=== PATIENT | female | born 1980 | race Caucasian/White ===

== ENCOUNTER 2016-12-12 07:17 | Day surgery (SDC) | payer OTHER ==
[2016-12-11 11:37] VITALS: BMI 26.8
[2016-12-12] VITALS (8 sets, daily range): BP systolic 97–128; BP diastolic 61–77; PULSE 50–61; RESP 12–21; Ht 161.3 cm; Wt 71.0 kg
[~2016-12-12] VITALS: Ht 161.3 cm; Wt 71.0 kg
[2016-12-12 08:22] LABS: ADD SCAN DIFF NO
[2016-12-12] MEDS ORDERED: CIPROFLOXACIN 400 MG in D5W 200 ML IVPB SCH (08:30)
[2016-12-12 08:35] LABS: BASOPHIL # 0.1 10^3/ul (0.0-0.1); BASOPHILS % 0.7 % (0.0-2.0); EOSINOPHILS # 0.3 10^3/ul (0.0-0.5); EOSINOPHILS % 3.6 % (0.0-7.0); HEMATOCRIT 38.9 % (37.0-47.0); HEMOGLOBIN 13.2 g/dl (12.0-16.0); LYMPHOCYTES # 3.1 10^3/ul (0.8-2.9); LYMPHOCYTES % 41.5 % (15.0-51.0); MEAN CORPUSCULAR HEMOGLOBIN 29.5 pg (29.0-33.0); MEAN CORPUSCULAR HGB CONC 33.9 g/dl (32.0-37.0); MEAN CORPUSCULAR VOLUME 86.8 fl (82.0-101.0); MEAN PLATELET VOLUME 10.4 fl (7.4-10.4); MONOCYTE # 0.5 10^3/ul (0.3-0.9); MONOCYTES % 6.7 % (0.0-11.0); NEUTROPHIL # 3.5 10^3/ul (1.6-7.5); NEUTROPHILS % 47.4 % (39.0-77.0); PLATELET COUNT 202 10^3/UL (140-415); RED BLOOD COUNT 4.48 10^6/ul (4.20-5.40); RED CELL DISTRIBUTION WIDTH 12.1 % (11.5-14.5); WHITE BLOOD COUNT 7.5 10^3/ul (4.8-10.8)
[2016-12-12 08:40] LABS: INR 0.89; PT RATIO 0.9
[2016-12-12 08:41] LABS: PARTIAL THROMBOPLASTIN TIME 26.7 Sec (25.0-35.0)
[2016-12-12 08:44] LABS: ALBUMIN 4.3 g/dl (3.3-4.9); ALBUMIN/GLOBULIN RATIO 1.26; BILIRUBIN,INDIRECT 0.5 mg/dl (0-1.1); BILIRUBIN,TOTAL 0.5 mg/dl (0.2-1.3); TOTAL PROTEIN 7.7 g/dl (6.1-8.1)
[2016-12-12 08:48] LABS: CALCIUM 9.4 mg/dl (8.4-10.2); CREATININE 0.77 mg/dl (0.44-1.00); POTASSIUM 3.7 mmol/L (3.5-5.1)
[2016-12-12] MEDS ORDERED: GLYCOPYRROLATE 0.4 MG INJ ONE (08:55)
[2016-12-12] MEDS ORDERED: LIDOCAINE 2% (SDV) 5 ML INJ ONE (08:55)
[2016-12-12] MEDS ORDERED: SUCCINYLCHOLINE CHLORIDE 100 MG/5 ML SYG IV ONE (08:55)
[2016-12-12] MEDS ORDERED: ROCURONIUM 50 MG INJ ONE (08:55)
[2016-12-12] MEDS ORDERED: NEOSTIGMINE 3 MG/3 ML SYRINGE ONE (08:55)
[2016-12-12] MEDS ORDERED: PROPOFOL 20 ML ONE (08:55)
[2016-12-12] MEDS ORDERED: MEPERIDINE 100 MG INJ ONE (08:56)
[2016-12-12] MEDS ORDERED: MIDAZOLAM 1 MG/ML 2 ML INJ IV PRN (09:00)
[2016-12-12] MEDS ORDERED: FENTAnyl 50 MCG/ML VIAL IV PRN ×3 (09:00)
[2016-12-12] MEDS ORDERED: METOCLOPRAMIDE 10 MG INJ IV PRN (09:00)
[2016-12-12] MEDS ORDERED: ONDANSETRON 4 MG INJ IV PRN (09:00)
[2016-12-12] MEDS ORDERED: morphine (1 MG/ML) 10ML SYRINGE IV PRN ×3 (09:00)
[2016-12-12] MEDS ORDERED: MEPERIDINE 25 MG INJ IV PRN (09:00)
[2016-12-12] MEDS ORDERED: DIPHENHYDRAMINE 50 MG INJ IV PRN (09:00)
[2016-12-12] MEDS ORDERED: OXYCODONE/ACETAMINOPHEN (5/325) TAB PO PRN ×2 (09:00)
[2016-12-12] MEDS ORDERED: IOHEXOL 300MG/ML 30 ML BTL ONE (09:22)
[2016-12-12] MEDS ORDERED: INDOMETHACIN 50 MG SUPP PR ONE (10:00)
[2016-12-12] MEDS ORDERED: ONDANSETRON 4 MG INJ ONE (10:03)
[2016-12-12] MEDS ORDERED: METOCLOPRAMIDE 10 MG INJ ONE (10:03)
--- NOTE | 2016-12-12 13:34 | RADRPT ---
PROCEDURE: Intraoperative imaging for ERCP with fluoroscopy. CLINICAL INDICATION: Right upper quadrant pain. Intraoperative. TECHNIQUE: 6 images of the right upper quadrant of the abdomen were obtained in the operating room with an image intensifier. No radiologist was in attendance. 8.3 seconds of fluoroscopy time was used. COMPARISON: No prior study is available for comparison. FINDINGS: Images demonstrate the endoscope in position. Contrast was injected into the common bile duct. Chetan ling defects are present in the non dilated common bile duct consistent with stones. A balloon swee p was made and a stent was placed. IMPRESSION: 1. ERCP as described above. RPTAT: QQ .Billy Espinosa MD, MD Date Time Electronically viewed and signed by .Billy Espinosa MD, on 12/12/2016 13:34 .R/
[2016-12-13] MEDS ORDERED: OXYC-279 PO (07:29)
[2016-12-13] MEDS ORDERED: ONDA4TAB8 PO (07:29)
--- NOTE | 2016-12-15 18:21 | GILP ---
DATE OF PROCEDURE: 12/12/2016 PROCEDURE: ERCP, sphincterotomy, and removal of stone and stenting. INDICATION: A 36-year-old female referred to the office for a positive MRCP. She had 2 to 3 stones in the bile duct. Each one was about 3 to 4 mm in diameter. The purpose of this procedure is to evaluate the biliary system and perform therapeutic endoscopy prior to laparoscopic cholecystectomy. The risks of the procedure, related complicated, anesthetic risks, and alternatives discussed and informed consent was obtained. DESCRIPTION OF PROCEDURE: The patient was brought to the OR, room number 5, intubated by Dr. Jaems, and placed in the prone position. She was given Indocin suppository and Cipro. ERCP scope passed and merges into the esophagus, advanced down into stomach and duodenum. The ampulla was identified, which appeared prominent as if the stone was impacted. Technically it was difficult to even cannulate the ampulla because of the impacted stone. So, precut sphincterotomy was done by engaging the sphincter dome. After doing a good precut sphincterotomy, I could obtain a deeper cannulation, and after that the sphincterotomy was extended. A large sphincterotomy was done and 2 stones, each 1 about 1.5 cm in diameter successfully removed. Occlusive cholangiogram appeared clean. At this point, I deployed a 10-Cymraes 5 cm stent and good flow was established. The scope was removed with excellent patient tolerance. IMPRESSION: 1. Impacted stone in the ampulla. 2. Precut sphincterotomy done and then extended. 3. Two large stones 1.5 cm removed successively, both appeared to be pigmented. 4. Stent, 10-Cymraes, 5 cm, successfully deployed. 5. Total fluoro time was 7 seconds. PLAN: Monitor LFT, will remove the stent after 3-4 months. The patient can proceed with laparoscopic cholecystectomy. Dictated By: Raghu Lott MD /[email or web address] /Document#: [id number]
== END 2016-12-12 11:50 | disposition home or self-care (01) ==
LOC: SDS 07:17 → GIL 07:17 → SDS 11:50
PROVIDERS: ATTEND Internal Medicine Gastroenterology
DX: K80.50 Calculus of bile duct without cholangitis or cholecystitis without obstruction (principal)
CPT/HCPCS: 43264; 74330; 80053; 85025; 85610; 85730; C2617; J0744; J2175; J2405; J2765; J7999; Q9967; Z7512; Z7610; J2710

== ENCOUNTER 2016-12-13 05:12 | Inpatient (IN) | payer OTHER ==
[~2016-12-13] VITALS: Ht 162.6 cm; Wt 73.3 kg
[2016-12-13] MEDS ORDERED: ONDANSETRON 4 MG INJ IV STA (05:41)
[2016-12-13] MEDS ORDERED: morphine 4 MG/ML VIAL IV STA (05:41)
[2016-12-13] MEDS ORDERED: SOD CHLORIDE 0.9% 500 ML IV STA (05:41)
[2016-12-13 06:20] LABS: ADD SCAN DIFF NO; BASOPHILS % 0.2 % (0.0-2.0); EOSINOPHILS # 0.1 10^3/ul (0.0-0.5); HEMATOCRIT 38.5 % (37.0-47.0); HEMOGLOBIN 13.5 g/dl (12.0-16.0); LYMPHOCYTES # 1.2 10^3/ul (0.8-2.9); LYMPHOCYTES % 11.3 % (15.0-51.0); MEAN CORPUSCULAR HEMOGLOBIN 30.3 pg (29.0-33.0); MEAN CORPUSCULAR HGB CONC 35.1 g/dl (32.0-37.0); MEAN CORPUSCULAR VOLUME 86.3 fl (82.0-101.0); MONOCYTE # 0.5 10^3/ul (0.3-0.9); NEUTROPHIL # 8.5 10^3/ul (1.6-7.5); NEUTROPHILS % 82.1 % (39.0-77.0); PLATELET COUNT 198 10^3/UL (140-415); RED BLOOD COUNT 4.46 10^6/ul (4.20-5.40); RED CELL DISTRIBUTION WIDTH 11.8 % (11.5-14.5); WHITE BLOOD COUNT 10.3 10^3/ul (4.8-10.8)
[2016-12-13 06:56] LABS: ALBUMIN 4.2 g/dl (3.3-4.9); ALBUMIN/GLOBULIN RATIO 1.2; BILIRUBIN,INDIRECT 0.8 mg/dl (0-1.1); BILIRUBIN,TOTAL 0.8 mg/dl (0.2-1.3); CALCIUM 9.6 mg/dl (8.4-10.2); CREATININE 0.77 mg/dl (0.44-1.00); POTASSIUM 3.7 mmol/L (3.5-5.1); TOTAL PROTEIN 7.7 g/dl (6.1-8.1)
[2016-12-13] MEDS ORDERED: OXYC-279 PO (07:29)
[2016-12-13] MEDS ORDERED: ONDA4TAB8 PO (07:29)
[2016-12-13] MEDS ORDERED: KETOROLAC 15 MG INJ IV STA (07:45)
[2016-12-13] MEDS ORDERED: SOD CHLORIDE 0.9% 1,000 ML IV STA (07:45)
--- NOTE | 2016-12-13 08:10 | ERA ---
ER Documentation Chief Complaint Date/Time DATE: 12/13/16 TIME: 07:45 Chief Complaint upper abd pain since yesterday, had ERCP yesterday and remove 8 gall stones HPI 36-year-old woman status post ERCP yesterday complains of severe epigastric abdominal pain constant, nonradiating and associated with nausea. She had multiple very large stones removed, underwent sphincterectomy and pancreatic stent placement. She denies fevers or chills, no chest pain or shortness of breath, no vomiting or diarrhea. ROS All systems reviewed and are negative except as per history of present illness. Medications Home Meds Active Scripts Ondansetron Hcl* (Zofran*) 4 Mg Tablet, 4 MG PO Q8H Y for NAUSEA AND/OR VOMITING , #15 TAB Prov:OSCAR HESTER MD 12/13/16 Oxycodone HCl/Acetaminophen (Percocet 5-325 mg Tablet) 1 Each Tablet, 1 EACH PO TID for PAIN AND/OR INFLAMMATION, #12 TAB Prov:OSCAR HESTER MD 12/13/16 Allergies Allergies: Coded Allergies: No Known Allergy (Unverified , 12/12/16) PMhx/Soc None History of Surgery: Yes (ercp) Anesthesia Reaction: No Hx 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 Disorder: No Hx Respiratory Disorders: No Hx Cardiac Disorders: No Hx Psychiatric Problems: No Hx Miscellaneous Medical Probl: Yes (gallstones) Hx Alcohol Use: No Hx Substance Use: No Hx Tobacco Use: No Smoking Status: Never smoker FmHx Family History: No diabetes Physical Exam Vitals Vital Signs Date Time Temp Pulse Resp B/P Pulse Ox O2 Delivery O2 Flow Rate FiO2 12/13/16 05:17 98.2 67 20 129/74 99 Physical Exam GENERAL: Well-developed, well-nourished, appears dehydrated, moderate discomfort , afebrile HEENT: Dry mucous membranes, pink conjunctiva, no cervical spine tenderness or step-off deformities, no goiter, no jaundice or icterus, extraocular movements intact without pain. No submandibular induration, and no pharyngeal erythema NEURO: Alert and oriented 3, cranial nerves II through XII intact bilaterally, pupils equal round reactive to light, no focal deficits or facial asymmetry, sensation intact distally Strength 5/5 in upper and lower extremities bilaterally CARDIAC: Regular rate and rhythm, no murmurs rubs or gallops LUNGS: Clear bilaterally no wheezing crackles or stridor ABDOMEN: Soft nontender, no guarding, no rigidity, no rebound, no psoas sign no obturator sign. Normoactive bowel sounds SKIN: Warm and dry to touch, no abrasions, contusions, or hematomas, no lacerations, no ecchymosis, no target lesions, and without ulcers EXTREMITIES: No clubbing cyanosis or edema, calves are bilaterally symmetrical, no Homans sign, no popliteal cord sign. Distal pulses equal and bilateral PSYCH: Normal affect without agitation or irritability Result Diagram: 12/13/1653 12/13/1653 Results 24 hrs Laboratory Tests Test 12/13/16 05:53 White Blood Count 10.310^3/ul Red Blood Count 4.4610^6/ul Hemoglobin 13.5g/dl Hematocrit 38.5% Mean Corpuscular Volume 86.3fl Mean Corpuscular Hemoglobin 30.3pg Mean Corpuscular Hemoglobin Concent 35.1g/dl Red Cell Distribution Width 11.8% Platelet Count 00314^3/UL Mean Platelet Volume 10.0fl Neutrophils % 82.1% Lymphocytes % 11.3% Monocytes % 5.0% Eosinophils % 1.0% Basophils % 0.2% Nucleated Red Blood Cells % 0.0/100WBC Neutrophils # 8.510^3/ul Lymphocytes # 1.210^3/ul Monocytes # 0.510^3/ul Eosinophils # 0.110^3/ul Basophils # 0.010^3/ul Nucleated Red Blood Cells # 0.010^3/ul Sodium Level 143mmol/L Potassium Level 3.7mmol/L Chloride Level 103mmol/L Carbon Dioxide Level 24mmol/L Anion Gap 20 Blood Urea Nitrogen 16mg/dl Creatinine 0.77mg/dl Glucose Level 101mg/dl Calcium Level 9.6mg/dl Total Bilirubin 0.8mg/dl Direct Bilirubin 0.00mg/dl Indirect Bilirubin 0.8mg/dl Aspartate Amino Transf (AST/SGOT) 26IU/L Alanine Aminotransferase (ALT/SGPT) 33IU/L Alkaline Phosphatase 65IU/L Total Protein 7.7g/dl Albumin 4.2g/dl Globulin 3.50g/dl Albumin/Globulin Ratio 1.20 Lipase 50217J/L Current Medications Medications (Trade) Dose Ordered Sig/Genaro Route PRN Reason Start Time Stop Time Status Last Admin Dose Admin Sodium Chloride (NS) 500 ml @ 500 mls/hr Q1H STAT IV 12/13/16 05:41 12/13/16 06:40 DC 12/13/16 06:02 Morphine Sulfate (morphine) 4 mg ONCE STAT IV 12/13/16 05:41 12/13/16 05:43 DC 12/13/16 06:02 Ondansetron HCl (Zofran Inj) 4 mg ONCE STAT IV 12/13/16 05:41 12/13/16 05:43 DC Procedures/MDM IV line was established patient was placed on bus driver/monitor rhythm strip revealed a sinus rhythm at about 70 bpm with upright P and T waves. Patient was afebrile. I administered 500 cc normal saline, morphine 4 mg IV, Zofran 4 mg IV, and a GI cocktail 50 cc p.o. CBC and electrolytes are normal, liver function tests normal, lipase elevated at over 19,000. GI consultation provided by Dr. Lott, I spoke to him regarding the patient's presentation and symptomatology, he assured that this is secondary to a chemical pancreatitis due to sphincterectomy and stent placement although he did recommend admission for observation, rehydration, pain control. I administered Toradol 15 mg IV for continued pain and another liter of normal saline intravenously. Patient admitted to [facility]. Departure Diagnosis: Primary Impression: Postoperative pain Additional Impressions: Intractable pain Acute pancreatitis Qualified Code: K85.90 - Acute pancreatitis, unspecified complication status, unspecified pancreatitis type Dehydration Condition: Fair Patient Instructions: Post Op Wound Check, Pain OSCAR HESTER MD Dec 13, 2016 07:55
[2016-12-13 10:40] VITALS: TEMP 98
[2016-12-13] MEDS ORDERED: ACETAMINOPHEN 650 MG SUPP PR PRN (12:30)
[2016-12-13] MEDS ORDERED: morphine 2 MG INJ IV PRN ×2 (12:30→16:30)
[2016-12-13] MEDS ORDERED: NACL 0.9% 3 ML SYG IV SCH (12:30)
[2016-12-13] MEDS: ONDANSETRON 4 MG INJ IV PRN ×2 (12:47→19:23)
[2016-12-13] MEDS: SOD CHLORIDE 0.9% 1,000 ML IV SCH ×2 (12:47→21:39)
--- NOTE | 2016-12-13 13:17 | HP ---
Date/Time of Note Date/Time of Note DATE: 12/13/16 TIME: 13:09 Assessment/Plan VTE Prophylaxis VTE Prophylaxis Intervention: ambulation, SCD's Lines/Catheters IV [facility] Assessment/Plan Assessment/Plan This is a 36-year-old female who had undergone ERCP yesterday, who presented to the emergency room with worsening epigastric abdominal pain associated with nausea. 1. Intractable abdominal pain, secondary to post ERCP pancreatitis. -Admit as inpatient. -patient will be kept strict n.p.o. with aggressive IV fluid hydration and pain medications -Trend lipase/amylase daily -GI consult with Dr. Lott as patient had undergone ERCP yesterday. 2. History of infected gallstone, status post ERCP on 12/12/2016. 3. Recent childbirth/breast-feeding. DVT prophylaxis: SCD/ambulation PUD prophylaxis: Pepcid Plan: Patient will be kept in house. She will be treated with aggressive IV fluid hydration, pain medication and strict n.p.o. We will continue to trend liver panel and lipase levels. We will also call surgery consult as patient reported that she was supposed to go for laparoscopic cholecystectomy and wanted to do it during this hospitalization. However her lipase remains high and we will defer this to surgery. Patient will be kept full code. The rest of the management depend on clinical course, further studies and input from consultants. Approximately 60 minutes was spent on this history and physical. Case discussed with . HPI/ROS Admit Date/Time Admit Date/Time Dec 13, 2016 at 08:56 Hx of Present Illness This is a 36-year-old female with a past medical history of gallstone, recent childbirth 4 months ago and is breast-feeding currently, who presented to the emergency room with complaints of worsening epigastric abdominal pain associated with nausea without vomiting. Apparently, patient had undergone ERCP , sphincterotomy and pancreatic stent placement by yesterday. Patient also reported that she was supposed to go for laparoscopic cholecystectomy with Dr. Brown in the next few weeks. Patient denied any fever , chills, diarrhea, chest pain, shortness of breath, upper or lower GI bleed episode or other constitutional symptoms. Initial workup in the emergency room showed elevated lipase 19,385. Patient was given morphine, GI cocktail, Zofran and IV fluids in the emergency room and a clinical decision was made to admit for further evaluation. ROS A 12 point review of system was assessed and is negative other than what is mentioned in HPI PMH/Family/Social Past Medical History See HPI Past Surgical History See HPI Social History Patient denied history of smoking, alcohol or illicit drug use Smoking Status: Never smoker Exam/Review of Systems Vital Signs Vitals Vital Signs Date Time Temp Pulse Resp B/P Pulse Ox O2 Delivery O2 Flow Rate FiO2 12/13/16 10:40 98.0 60 18 118/73 100 Room Air Exam Exam General: Well developed,adequately built, not in any acute distress . HEENT: Normocephalic, Atraumatic, No laceration or hematoma; Eyes: PEERL, Conjunctiva clear, Anicteric sclera Neck: Supple without any lymphadenopathy, nontender, no JVD, no carotid bruits, trachea midline, no thyromegaly Cardiac: S1, S2 auscultated, regular rhythm and rate, no mumurs or gallop Pulmonary: Normal respiratory effort. Chest clear to auscultation bilaterally, no adventitious breath sounds GI: Severe tenderness to epigastric area, otherwise abdomen normal to inspection. Soft, non- distended, no masses, no rebound tenderness or guarding. Bowel sounds active on all four quadrants Genitourinary: Deferred Extremities: No cyanosis, clubbing, or edema. Pulses [2+] bilaterally. Full ROM on all four extremities. No focal weakness appreciated. Neurologic: Alert to person, place, time, and situation. Affect appropriate, intact sensation. Skin: Clean,dry, and intact. No ecchymosis, no rashes, or lesions Labs Result Diagram: 12/13/1653 12/13/1653 Medications Medications Current Medications Ondansetron HCl (Zofran Inj) 4 mg Q6H PRN IV NAUSEA AND/OR VOMITING Last administered on 12/13/16 12:47; Admin Dose 4 MG; Start 12/13/16 at 12:30 Acetaminophen (Tylenol Supp) 650 mg Q6H PRN [place] PAIN LEVEL 1-3 OR FEVER; Start 12/13/16 at 12:30 Morphine Sulfate (morphine) 2 mg Q4H PRN IV SEVERE PAIN LEVEL 7-10 Last administered on 12/13/16 12:34; Admin Dose 2 MG; Start 12/13/16 at 12:30 Famotidine 20 mg 20 mg Q12 IV ; Start 12/13/16 at 21:00 Sodium Chloride (NS) 1,000 ml @ 125 mls/hr Q8H IV Last administered on t 12:47; Admin Dose 125 MLS/HR; Start 12/13/16 at 12:30 REBECCA DALTON NP Dec 13, 2016 13:17 REBECCA DALTON NP Dec 13, 2016 13:17
[2016-12-13 13:45] VITALS: BP 128/71; RESP 18
--- NOTE | 2016-12-13 17:47 | CONS ---
Date/Time of Note Date/Time of Note DATE: 12/13/16 TIME: 17:45 Assessment/Plan Assessment/Plan Additional Assessment/Plan 1. Acute pancreatitis secondary to edema from the sphincterotomy 2. Status post vitrectomy and removal of 2 large stones each 1 1-1/2 cm in diameter 3. Gallstone Plan IV fluid at 1 25 cc/h N.p.o. Narcotic for the pain control We will monitor amylase lipase closely Patient wants her gallbladder to be removed during this hospitalization and will do do it once amylase lipase is back to normal Consultation Date/Type/Reason Admit Date/Time Dec 13, 2016 at 08:56 Hx of Present Illness Patient is a 36-year-old female came to the ER complaining of abdominal pain confined to the epigastric area associated with some nausea. In the ER she was evaluated her liver function tests and CBC both were normal but her lipase was in the range of 19,000 so patient was admitted with the diagnosis of acute pancreatitis. Patient had a multiple gallstone and was found to have 2-3 stones on MR CP. She underwent ERCP and sphincterotomy and 2 large stones were removed each one was about 1-1/2 cm in diameter. And successfully stent was deployed. During the procedure no dye was injected in the pancreatic duct no guidewire was passed into the pancreatic duct. This was a selective cannulation of the bile duct. Social History Smoking Status: Never smoker Exam/Review of Systems Vital Signs Vitals Vital Signs Date Time Temp Pulse Resp B/P Pulse Ox O2 Delivery O2 Flow Rate FiO2 12/13/16 13:45 98.2 57 18 128/71 99 12/13/16 10:40 Room Air Exam Constitutional: alert, oriented, well developed Psych: nl mood/affect, no complaints Head: atraumatic, normocephalic Eyes: EOMI, PERRL, nl conjunctiva, nl lids, nl sclera ENMT: nl external ears & nose, nl lips & teeth, nl nasal mucosa & septum Neck: non-tender, supple Respiratory: clear to auscultation, normal air movement Cardiovascular: nl pulses, regular rate and rhythm Gastrointestinal: nl liver, spleen, non-tender, soft Musculoskeletal: nl extremities to inspection, nl gait and stance Extremities: normal pulses 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: SUBSTATION OPERATOR APPRENTICE II-XII intact, nl mental status, nl speech, nl strength Skin: nl turgor, No rash or lesions Lymph: nl lymph nodes Results Result Diagram: 12/13/16 0553 12/13/16 0553 Results 24 hrs Laboratory Tests Test 12/13/16 05:53 White Blood Count 10.3 # Red Blood Count 4.46 Hemoglobin 13.5 Hematocrit 38.5 Mean Corpuscular Volume 86.3 Mean Corpuscular Hemoglobin 30.3 Mean Corpuscular Hemoglobin Concent 35.1 Red Cell Distribution Width 11.8 Platelet Count 198 Mean Platelet Volume 10.0 Neutrophils % 82.1 H Lymphocytes % 11.3 L Monocytes % 5.0 Eosinophils % 1.0 Basophils % 0.2 Nucleated Red Blood Cells % 0.0 Neutrophils # 8.5 H Lymphocytes # 1.2 Monocytes # 0.5 Eosinophils # 0.1 Basophils # 0.0 Nucleated Red Blood Cells # 0.0 Sodium Level 143 Potassium Level 3.7 Chloride Level 103 Carbon Dioxide Level 24 Anion Gap 20 H Blood Urea Nitrogen 16 Creatinine 0.77 Glucose Level 101 Calcium Level 9.6 Total Bilirubin 0.8 Direct Bilirubin 0.00 Indirect Bilirubin 0.8 Aspartate Amino Transf (AST/SGOT) 26 Alanine Aminotransferase (ALT/SGPT) 33 Alkaline Phosphatase 65 Total Protein 7.7 Albumin 4.2 Globulin 3.50 H Albumin/Globulin Ratio 1.20 Lipase 35564 H Medications Medications Current Medications Ondansetron HCl (Zofran Inj) 4 mg Q6H PRN IV NAUSEA AND/OR VOMITING Last administered on 12/13/16 12:47; Admin Dose 4 MG; Start 12/13/16 at 12:30 Acetaminophen (Tylenol Supp) 650 mg Q6H PRN [place] PAIN LEVEL 1-3 OR FEVER; Start 12/13/16 at 12:30 Famotidine 20 mg 20 mg Q12 IV ; Start 12/13/16 at 21:00 Sodium Chloride (NS) 1,000 ml @ 125 mls/hr Q8H IV Last administered on 12:47; Admin Dose 125 MLS/HR; Start 12/13/16 at 12:30 Morphine Sulfate (morphine) 3 mg Q4H PRN IV SEVERE PAIN LEVEL 7-10 Last administered on 12/13/16 16:09; Admin Dose 3 MG; Start 12/13/16 at 16:30 DEBBIE HANSEN MD Dec 13, 2016 17:47
[2016-12-13] MEDS ORDERED: morphine 4 MG/ML VIAL IV PRN ×2 (18:00→20:00)
[2016-12-13 19:35] VITALS: BP 115/61; RESP 18
[2016-12-13] MEDS: KETOROLAC 15 MG INJ IV PRN (20:28)
[2016-12-13] MEDS: FAMOTIDINE 20 MG INJ IV SCH (20:30)
[2016-12-14 02:31] VITALS: BP 100/62; RESP 18
[2016-12-14] MEDS: SOD CHLORIDE 0.9% 1,000 ML IV SCH ×2 (04:30→06:06)
[2016-12-14 06:05] LABS: ADD SCAN DIFF NO
[2016-12-14 06:37] LABS: BASOPHIL # 0.1 10^3/ul (0.0-0.1); BASOPHILS % 0.4 % (0.0-2.0); EOSINOPHILS # 0.2 10^3/ul (0.0-0.5); EOSINOPHILS % 1.6 % (0.0-7.0); HEMOGLOBIN 11.3 g/dl (12.0-16.0); LYMPHOCYTES # 1.4 10^3/ul (0.8-2.9); MEAN CORPUSCULAR HGB CONC 33.2 g/dl (32.0-37.0); MEAN CORPUSCULAR VOLUME 90.2 fl (82.0-101.0); MEAN PLATELET VOLUME 10.2 fl (7.4-10.4); MONOCYTE # 0.6 10^3/ul (0.3-0.9); NEUTROPHIL # 9.2 10^3/ul (1.6-7.5); NEUTROPHILS % 80.6 % (39.0-77.0); PLATELET COUNT 175 10^3/UL (140-415); RED BLOOD COUNT 3.77 10^6/ul (4.20-5.40); RED CELL DISTRIBUTION WIDTH 12.4 % (11.5-14.5); WHITE BLOOD COUNT 11.4 10^3/ul (4.8-10.8)
[2016-12-14 06:47] LABS: ALBUMIN 3.2 g/dl (3.3-4.9); ALBUMIN/GLOBULIN RATIO 1.1; BILIRUBIN,INDIRECT 0.4 mg/dl (0-1.1); BILIRUBIN,TOTAL 0.4 mg/dl (0.2-1.3); CALCIUM 8.7 mg/dl (8.4-10.2); CHOL/HDL RATIO 2.1 RATIO; CREATININE 0.69 mg/dl (0.44-1.00); MAGNESIUM 1.7 mg/dl (1.7-2.5); PHOSPHORUS 3.2 mg/dl (2.5-4.9); POTASSIUM 3.6 mmol/L (3.5-5.1); TOTAL PROTEIN 6.1 g/dl (6.1-8.1)
[2016-12-14 07:14] LABS: THYROID STIMULATING HORMONE 0.281 MIU/L (0.465-4.680)
[2016-12-14] MEDS ORDERED: DEXTROSE 5%-0.45% NACL 1,000 ML IV SCH (07:30)
[2016-12-14 07:52] VITALS: BP 105/60; RESP 16
--- NOTE | 2016-12-14 09:00 | PN ---
Date/Time of Note Date/Time of Note DATE: 12/14/16 TIME: 08:56 Assessment/Plan VTE Prophylaxis VTE Prophylaxis Intervention: ambulation, SCD's Lines/Catheters IV Catheter Type (from Nrs): Peripheral IV Assessment/Plan Chief Complaint/Hosp Course 1. Intractable abdominal pain, secondary to post ERCP pancreatitis. Lipase trending down nicely. -Continue strict n.p.o. with aggressive IV fluid hydration and pain medications -Continue to trend lipase/amylase daily -GI consult appreciated 2. History of infected gallstone, status post ERCP on 12/12/2016. 3. Recent childbirth/breast-feeding. DVT prophylaxis: SCD/ambulation PUD prophylaxis: Pepcid Plan:F/u with surgery recs on inpatient vs outpatient cholecystectomy plan as patient is still recovering from acute pancreatitis. We will continue to monitor lipase level closely. Case discussed with . Problems: Subjective 24 Hr Interval Summary Free Text/Dictation Patient with improved pain status. Afebrile,no acute overnight episodes. Exam/Review of Systems Vital Signs Vitals Vital Signs Date Time Temp Pulse Resp B/P Pulse Ox O2 Delivery O2 Flow Rate FiO2 12/14/16 07:52 98.4 62 16 105/60 98 12/13/16 10:40 Room Air Intake and Output 12/13/16 12/13/16 12/14/16 15:00 23:00 07:00 Intake Total 1170 ml 1000 ml Output Total 300 ml Balance 870 ml 1000 ml Exam General: Well developed,adequately built, not in any acute distress . HEENT: Normocephalic, Atraumatic, No laceration or hematoma; Eyes: PEERL, Conjunctiva clear, Anicteric sclera Neck: Supple without any lymphadenopathy, nontender, no JVD, no carotid bruits, trachea midline, no thyromegaly Cardiac: S1, S2 auscultated, regular rhythm and rate, no mumurs or gallop Pulmonary: Normal respiratory effort. Chest clear to auscultation bilaterally, no adventitious breath sounds GI: Mild tenderness to epigastric area, otherwise abdomen normal to inspection. Soft, non- distended, no masses, no rebound tenderness or guarding. Bowel sounds active on all four quadrants Genitourinary: Deferred Extremities: No cyanosis, clubbing, or edema. Pulses [2+] bilaterally. Full ROM on all four extremities. No focal weakness appreciated. Neurologic: Alert to person, place, time, and situation. Affect appropriate, intact sensation. Skin: Clean,dry, and intact. No ecchymosis, no rashes, or lesions Results Result Diagram: 12/14/1642 12/14/16 0542 Results 24 hrs Laboratory Tests Test 12/14/16 05:42 White Blood Count 11.4 H Red Blood Count 3.77 L Hemoglobin 11.3 L Hematocrit 34.0 L Mean Corpuscular Volume 90.2 Mean Corpuscular Hemoglobin 30.0 Mean Corpuscular Hemoglobin Concent 33.2 Red Cell Distribution Width 12.4 Platelet Count 175 Mean Platelet Volume 10.2 Neutrophils % 80.6 H Lymphocytes % 12.0 L Monocytes % 5.0 Eosinophils % 1.6 Basophils % 0.4 Nucleated Red Blood Cells % 0.0 Neutrophils # 9.2 H Lymphocytes # 1.4 Monocytes # 0.6 Eosinophils # 0.2 Basophils # 0.1 Nucleated Red Blood Cells # 0.0 Sodium Level 143 Potassium Level 3.6 Chloride Level 109 Carbon Dioxide Level 19 L Anion Gap 19 H Blood Urea Nitrogen 15 Creatinine 0.69 Glucose Level 64 #L Hemoglobin A1c 4.6 Calcium Level 8.7 Phosphorus Level 3.2 Magnesium Level 1.7 Total Bilirubin 0.4 Direct Bilirubin 0.00 Indirect Bilirubin 0.4 Aspartate Amino Transf (AST/SGOT) 20 Alanine Aminotransferase (ALT/SGPT) 30 Alkaline Phosphatase 52 Total Protein 6.1 # Albumin 3.2 #L Globulin 2.90 Albumin/Globulin Ratio 1.10 Triglycerides Level 66 Cholesterol Level 115 LDL Cholesterol, Calculated 49 HDL Cholesterol 53 Cholesterol/HDL Ratio 2.1 Amylase Level 1157 H Lipase 4436 H Thyroid Stimulating Hormone (TSH) 0.281 L Medications Medications Current Medications Ondansetron HCl (Zofran Inj) 4 mg Q6H PRN IV NAUSEA AND/OR VOMITING Last administered on 12/13/16 19:23; Admin Dose 4 MG; Start 12/13/16 at 12:30 Acetaminophen (Tylenol Supp) 650 mg Q6H PRN [place] PAIN LEVEL 1-3 OR FEVER; Start 12/13/16 at 12:30 Famotidine (Pepcid Iv) 20 mg Q12 IV Last administered on 12/13/16 20:30; Admin Dose 20 MG; Start 12/13/16 at 21:00 Morphine Sulfate (morphine) 4 mg Q3H PRN IV PAIN; Start 12/13/16 at 20:00 Ketorolac Tromethamine 15 mg 15 mg Q6H PRN IV PAIN Last administered on 20:28; Admin Dose 15 MG; Start 12/13/16 at 20:30; Stop 12/16/16 at 20:29 Dextrose/Sodium Chloride (D5-1/2ns) 1,000 ml @ 125 mls/hr Q8H IV Last administered on 12/14/16 08:36; Admin Dose 125 MLS/HR; Start 12/14/16 at 07:30 REBECCA DALTON NP Dec 14, 2016 09:00
--- NOTE | 2016-12-14 09:28 | CONS ---
Date/Time of Note Date/Time of Note DATE: 12/14/16 TIME: 09:24 Assessment/Plan Assessment/Plan Chief Complaint/Hosp Course 36-year-old female with post ERCP pancreatitis * Continue n.p.o., IV fluid hydration, pain control * Lipase level down to 4000s. Continue to monitor. * Laparoscopic cholecystectomy should be performed upon near normalization of lipase levels and within 6 weeks from the episode of pancreatitis. The above was discussed with the patient in detail. I ensured that all of her questions were answered. Further recommendations will be made based on patient' s clinical course. Problems: Consultation Date/Type/Reason Admit Date/Time Dec 13, 2016 at 08:56 Date of Consultation: Dec 14, 2016 Type of Consultation: GENERAL SURGERY Reason for Consultation Acute pancreatitis Hx of Present Illness Patient is a 36-year-old female with a history of gallstone disease and choledocholithiasis. Patient underwent outpatient ERCP with removal of 2 large common bile duct stones and stent placement yesterday. After ERCP she started experiencing severe epigastric abdominal pain with nausea and vomiting. She therefore presented to the emergency room. On arrival to the ER she was found to have an lipase level over 19,000. She was therefore admitted and started on bowel rest and aggressive intravenous fluid hydration and pain control. Currently, she states she feels a little bit better but is still experiencing epigastric pain. She denies any nausea. She is afebrile. A 14 point review of systems was conducted and was negative except for that which is mentioned in HPI Psychological: nl mood/affect, no complaints Past Medical History Medical History: gallstones Social History Smoking Status: Never smoker Exam/Review of Systems Vital Signs Vitals Vital Signs Date Time Temp Pulse Resp B/P Pulse Ox O2 Delivery O2 Flow Rate FiO2 12/14/16 07:52 98.4 62 16 105/60 98 12/13/16 10:40 Room Air Intake and Output 12/13/16 12/13/16 12/14/16 15:00 23:00 07:00 Intake Total 1170 ml 1000 ml Output Total 300 ml Balance 870 ml 1000 ml Exam GENERAL: Awake, alert, oriented x 3. No acute distress. SKIN: No jaundice. HEENT: PERRLA, EOMI, No Scleral Icterus NECK: Supple without JVD CARDIOVASCULAR: S1S2, regular rate and rhythm. No murmurs appreciated. RESPIRATORY: Clear to auscultation bilaterally. ABDOMEN: Soft, bowel sounds present, nondistended, there is epigastric tenderness to palpation. There is no rebound or guarding. EXTREMITIES: Free range of motion x 4. No cyanosis, edema, or clubbing. NEUROLOGIC: Cranial nerves II-XII are intact. Sensation is intact grossly. Results Result Diagram: 12/14/16 0542 12/14/16 0542 Results 24 hrs Laboratory Tests Test 12/14/16 05:42 White Blood Count 11.4 H Red Blood Count 3.77 L Hemoglobin 11.3 L Hematocrit 34.0 L Mean Corpuscular Volume 90.2 Mean Corpuscular Hemoglobin 30.0 Mean Corpuscular Hemoglobin Concent 33.2 Red Cell Distribution Width 12.4 Platelet Count 175 Mean Platelet Volume 10.2 Neutrophils % 80.6 H Lymphocytes % 12.0 L Monocytes % 5.0 Eosinophils % 1.6 Basophils % 0.4 Nucleated Red Blood Cells % 0.0 Neutrophils # 9.2 H Lymphocytes # 1.4 Monocytes # 0.6 Eosinophils # 0.2 Basophils # 0.1 Nucleated Red Blood Cells # 0.0 Sodium Level 143 Potassium Level 3.6 Chloride Level 109 Carbon Dioxide Level 19 L Anion Gap 19 H Blood Urea Nitrogen 15 Creatinine 0.69 Glucose Level 64 #L Hemoglobin A1c 4.6 Calcium Level 8.7 Phosphorus Level 3.2 Magnesium Level 1.7 Total Bilirubin 0.4 Direct Bilirubin 0.00 Indirect Bilirubin 0.4 Aspartate Amino Transf (AST/SGOT) 20 Alanine Aminotransferase (ALT/SGPT) 30 Alkaline Phosphatase 52 Total Protein 6.1 # Albumin 3.2 #L Globulin 2.90 Albumin/Globulin Ratio 1.10 Triglycerides Level 66 Cholesterol Level 115 LDL Cholesterol, Calculated 49 HDL Cholesterol 53 Cholesterol/HDL Ratio 2.1 Amylase Level 1157 H Lipase 4436 H Thyroid Stimulating Hormone (TSH) 0.281 L Medications Medications Current Medications Ondansetron HCl (Zofran Inj) 4 mg Q6H PRN IV NAUSEA AND/OR VOMITING Last administered on 12/13/16 19:23; Admin Dose 4 MG; Start 12/13/16 at 12:30 Acetaminophen (Tylenol Supp) 650 mg Q6H PRN [place] PAIN LEVEL 1-3 OR FEVER; Start 12/13/16 at 12:30 Famotidine (Pepcid Iv) 20 mg Q12 IV Last administered on 12/13/16 20:30; Admin Dose 20 MG; Start 12/13/16 at 21:00 Morphine Sulfate (morphine) 4 mg Q3H PRN IV PAIN; Start 12/13/16 at 20:00 Ketorolac Tromethamine 15 mg 15 mg Q6H PRN IV PAIN Last administered on 20:28; Admin Dose 15 MG; Start 12/13/16 at 20:30; Stop 12/16/16 at 20:29 Dextrose/Sodium Chloride (D5-NS) 1,000 ml @ 125 mls/hr Q8H IV ; Start 12/14/16 at 09:30 JAY LEON MD Dec 14, 2016 09:28
[2016-12-14] MEDS: FAMOTIDINE 20 MG INJ IV SCH ×2 (09:36→20:00)
[2016-12-14] MEDS: DEXTROSE 5%-0.9% NACL 1,000 ML IV SCH ×3 (09:40→21:13)
[2016-12-14 13:05] VITALS: BP 120/60; RESP 16
[2016-12-14] MEDS: KETOROLAC 15 MG INJ IV PRN (15:46)
--- NOTE | 2016-12-14 19:05 | CONS ---
Date/Time of Note Date/Time of Note DATE: 12/14/16 TIME: 19:04 Assessment/Plan Assessment/Plan Chief Complaint/Hosp Course Patient is a 36-year-old female came to the ER complaining of abdominal pain confined to the epigastric area associated with some nausea. In the ER she was evaluated her liver function tests and CBC both were normal but her lipase was in the range of 19,000 so patient was admitted with the diagnosis of acute pancreatitis. Patient had a multiple gallstone and was found to have 2-3 stones on MR CP. She underwent ERCP and sphincterotomy and 2 large stones were removed each one was about 1-1/2 cm in diameter. And successfully stent was deployed. During the procedure no dye was injected in the pancreatic duct no guidewire was passed into the pancreatic duct. This was a selective cannulation of the bile duct. Problems: Additional Assessment/Plan Additional Assessment/Plan 1. Acute pancreatitis secondary to edema from the sphincterotomy, improving a lot, lipase is down from 19,000-4000 2. Status post sphincterotomy and removal of 2 large stones each 1 1-1/2 cm in diameter 3. Gallstone Plan IV fluid at 1 25 cc/h N.p.o. Narcotic for the pain control We will monitor amylase lipase closely Patient wants her gallbladder to be removed during this hospitalization and will do do it once amylase lipase is back to normal Consultation Date/Type/Reason Admit Date/Time Dec 13, 2016 at 08:56 Initial Consult Date 12/14/16 Type of Consultation: GENERAL SURGERY 24 HR Interval Summary Free Text/Dictation Pain is much better, no nausea Exam/Review of Systems Vital Signs Vitals Vital Signs Date Time Temp Pulse Resp B/P Pulse Ox O2 Delivery O2 Flow Rate FiO2 12/14/16 13:05 98.3 72 16 120/60 99 12/13/16 10:40 Room Air Intake and Output 12/13/16 12/13/16 12/14/16 15:00 23:00 07:00 Intake Total 1170 ml 1000 ml Output Total 300 ml Balance 870 ml 1000 ml Exam Constitutional: alert, oriented, well developed Psych: nl mood/affect, no complaints Head: atraumatic, normocephalic Eyes: EOMI, PERRL, nl conjunctiva, nl lids, nl sclera ENMT: nl external ears & nose, nl lips & teeth, nl nasal mucosa & septum Neck: non-tender, supple Respiratory: clear to auscultation, normal air movement Cardiovascular: nl pulses, regular rate and rhythm Gastrointestinal: nl liver, spleen, non-tender, soft Musculoskeletal: nl extremities to inspection, nl gait and stance Extremities: normal pulses 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: 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 RECOVERY SPECIALIST II-XII 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, nl mental status, nl speech, nl strength Skin: nl turgor, No rash or lesions Lymph: nl lymph nodes Results Result Diagram: 12/14/1642 12/14/16 0542 Results 24 hrs Laboratory Tests Test 12/14/16 05:42 White Blood Count 11.4 H Red Blood Count 3.77 L Hemoglobin 11.3 L Hematocrit 34.0 L Mean Corpuscular Volume 90.2 Mean Corpuscular Hemoglobin 30.0 Mean Corpuscular Hemoglobin Concent 33.2 Red Cell Distribution Width 12.4 Platelet Count 175 Mean Platelet Volume 10.2 Neutrophils % 80.6 H Lymphocytes % 12.0 L Monocytes % 5.0 Eosinophils % 1.6 Basophils % 0.4 Nucleated Red Blood Cells % 0.0 Neutrophils # 9.2 H Lymphocytes # 1.4 Monocytes # 0.6 Eosinophils # 0.2 Basophils # 0.1 Nucleated Red Blood Cells # 0.0 Sodium Level 143 Potassium Level 3.6 Chloride Level 109 Carbon Dioxide Level 19 L Anion Gap 19 H Blood Urea Nitrogen 15 Creatinine 0.69 Glucose Level 64 #L Hemoglobin A1c 4.6 Calcium Level 8.7 Phosphorus Level 3.2 Magnesium Level 1.7 Total Bilirubin 0.4 Direct Bilirubin 0.00 Indirect Bilirubin 0.4 Aspartate Amino Transf (AST/SGOT) 20 Alanine Aminotransferase (ALT/SGPT) 30 Alkaline Phosphatase 52 Total Protein 6.1 # Albumin 3.2 #L Globulin 2.90 Albumin/Globulin Ratio 1.10 Triglycerides Level 66 Cholesterol Level 115 LDL Cholesterol, Calculated 49 HDL Cholesterol 53 Cholesterol/HDL Ratio 2.1 Amylase Level 1157 H Lipase 4436 H Thyroid Stimulating Hormone (TSH) 0.281 L Medications Medications Current Medications Ondansetron HCl (Zofran Inj) 4 mg Q6H PRN IV NAUSEA AND/OR VOMITING Last administered on 12/13/16t 19:23; Admin Dose 4 MG; Start 12/13/16 at 12:30 Acetaminophen (Tylenol Supp) 650 mg Q6H PRN [place] PAIN LEVEL 1-3 OR FEVER; Start 12/13/16 at 12:30 Famotidine (Pepcid Iv) 20 mg Q12 IV Last administered on 12/14/16 09:36; Admin Dose 20 MG; Start 12/13/16 at 21:00 Morphine Sulfate (morphine) 4 mg Q3H PRN IV PAIN; Start 12/13/16 at 20:00 Ketorolac Tromethamine 15 mg 15 mg Q6H PRN IV PAIN Last administered on 15:46; Admin Dose 15 MG; Start 12/13/16 at 20:30; Stop 12/16/16 at 20:29 Dextrose/Sodium Chloride (D5-NS) 1,000 ml @ 125 mls/hr Q8H IV Last administered on 12/14/16 09:40; Admin Dose 125 MLS/HR; Start 12/14/16 at 09:30 DEBBIE HANSEN MD Dec 14, 2016 19:05
[2016-12-14 20:00] VITALS: Ht 162.6 cm; Wt 73.3 kg
[2016-12-14 20:27] VITALS: BP 124/56; RESP 16
[2016-12-15] MEDS: DEXTROSE 5%-0.9% NACL 1,000 ML IV SCH ×5 (01:30→23:25)
[2016-12-15 02:41] VITALS: BP 120/75; RESP 18
[2016-12-15] MEDS: ONDANSETRON 4 MG INJ IV PRN (03:26)
[2016-12-15] MEDS: KETOROLAC 15 MG INJ IV PRN ×2 (03:28→16:39)
[2016-12-15 06:54] LABS: ALBUMIN 2.9 g/dl (3.3-4.9); BILIRUBIN,INDIRECT 0.3 mg/dl (0-1.1); BILIRUBIN,TOTAL 0.3 mg/dl (0.2-1.3); TOTAL PROTEIN 5.7 g/dl (6.1-8.1)
[2016-12-15 07:07] LABS: T3 UPTAKE 40.8 % (23.5-40.5)
[2016-12-15 07:20] LABS: THYROID STIMULATING HORMONE 3.11 MIU/L (0.465-4.680)
[2016-12-15 07:34] VITALS: BP 122/66; RESP 16
--- NOTE | 2016-12-15 09:43 | PN ---
Date/Time of Note Date/Time of Note DATE: 12/15/16 TIME: 09:40 Assessment/Plan Lines/Catheters IV C[facility]ter Type (from [facility]): Peripheral IV Assessment/Plan Assessment/Plan 36-year-old female with post ERCP pancreatitis * Continue IV fluid hydration, pain control * Advance to clear liquids * Lipase level down to 600s. Continue to monitor. * Laparoscopic cholecystectomy should be performed upon near normalization of lipase levels and within 6 weeks from the episode of pancreatitis. The above was discussed with the patient in detail. I ensured that all of her questions were answered. Further recommendations will be made based on patient' s clinical course. Subjective 24 Hr Interval Summary Feels better. Still with some mild epigastric pain. Afebrile. Exam/Review of Systems Vital Signs Vitals Vital Signs Date Time Temp Pulse Resp B/P Pulse Ox O2 Delivery O2 Flow Rate FiO2 12/15/16 07:34 98.6 60 16 122/66 99 12/13/16 10:40 Room Air Intake and Output 12/14/16 12/14/16 12/15/16 15:00 23:00 07:00 Intake Total 620 ml 1000 ml 990 ml Balance 620 ml 1000 ml 990 ml Exam Free Text/Dictation GENERAL: Awake, alert, oriented x 3. No acute distress. SKIN: No jaundice. HEENT: PERRLA, EOMI, No Scleral Icterus CARDIOVASCULAR: S1S2, regular rate and rhythm. No murmurs appreciated. RESPIRATORY: Clear to auscultation bilaterally. ABDOMEN: Soft, bowel sounds present, nondistended, there is mild epigastric tenderness to palpation. There is no rebound or guarding. EXTREMITIES: Free range of motion x 4. No cyanosis, edema, or clubbing. Results Result Diagram: 12/14/16 0542 12/14/16 0542 JAY LEON MD Dec 15, 2016 09:42
--- NOTE | 2016-12-15 09:45 | PN ---
Date/Time of Note Date/Time of Note DATE: 12/15/16 TIME: 09:43 Assessment/Plan VTE Prophylaxis VTE Prophylaxis Intervention: ambulation, SCD's Lines/Catheters IV [facility] Type (from [facility]): Peripheral IV Assessment/Plan Chief Complaint/Hosp Course 1. Intractable abdominal pain, secondary to post ERCP pancreatitis. Lipase trending down nicely. -We will start clear liquid diet and advance as tolerated. Continue IV fluid hydration and pain medications -Continue to trend lipase/amylase daily -GI consult appreciated 2. History of infected gallstone, status post ERCP on 12/12/2016. 3. Recent childbirth/breast-feeding. DVT prophylaxis: SCD/ambulation PUD prophylaxis: Pepcid Plan:F/u with surgery recs on inpatient vs outpatient cholecystectomy plan as patient is still recovering from acute pancreatitis. Of note, patient still experiencing abdominal pain and wanted to have surgical intervention here before discharge. We will continue to monitor lipase level closely. Case discussed with . Problems: Subjective 24 Hr Interval Summary Free Text/Dictation No overnight episodes. Remains afebrile. Having pain on right lower quadrant, improved slightly. Exam/Review of Systems Vital Signs Vitals Vital Signs Date Time Temp Pulse Resp B/P Pulse Ox O2 Delivery O2 Flow Rate FiO2 12/15/16 07:34 98.6 60 16 122/66 99 12/13/16 10:40 Room Air Intake and Output 12/14/16 12/14/16 12/15/16 15:00 23:00 07:00 Intake Total 620 ml 1000 ml 990 ml Balance 620 ml 1000 ml 990 ml Exam General: Well developed,adequately built, not in any acute distress . HEENT: Normocephalic, Atraumatic, No laceration or hematoma; Eyes: PEERL, Conjunctiva clear, Anicteric sclera Neck: Supple without any lymphadenopathy, nontender, no JVD, no carotid bruits, trachea midline, no thyromegaly Cardiac: S1, S2 auscultated, regular rhythm and rate, no mumurs or gallop Pulmonary: Normal respiratory effort. Chest clear to auscultation bilaterally, no adventitious breath sounds GI: Mild tenderness to epigastric area, otherwise abdomen normal to inspection. Soft, non- distended, no masses, no rebound tenderness or guarding. Bowel sounds active on all four quadrants Genitourinary: Deferred Extremities: No cyanosis, clubbing, or edema. Pulses [2+] bilaterally. Full ROM on all four extremities. No focal weakness appreciated. Neurologic: Alert to person, place, time, and situation. Affect appropriate, intact sensation. Skin: Clean,dry, and intact. No ecchymosis, no rashes, or lesions Results Result Diagram: 12/14/1654112/14/16 0542 Results 24 hrs Laboratory Tests Test 12/15/16 05:09 Total Bilirubin 0.3 Direct Bilirubin 0.00 Indirect Bilirubin 0.3 Aspartate Amino Transf (AST/SGOT) 19 Alanine Aminotransferase (ALT/SGPT) 32 Alkaline Phosphatase 50 Total Protein 5.7 L Albumin 2.9 L Amylase Level 342 #H Lipase 623 H Thyroid Stimulating Hormone (TSH) 3.110 Free Thyroxine Index 3.02 Thyroxine (T4) 7.4 Triiodothyronine (T3) Uptake 40.8 H Medications Medications Current Medications Ondansetron HCl (Zofran Inj) 4 mg Q6H PRN IV NAUSEA AND/OR VOMITING Last administered on 12/15/16 03:26; Admin Dose 4 MG; Start 12/13/16 at 12:30 Acetaminophen (Tylenol Supp) 650 mg Q6H PRN [place] PAIN LEVEL 1-3 OR FEVER; Start 12/13/16 at 12:30 Famotidine (Pepcid Iv) 20 mg Q12 IV Last administered on 12/14/16 20:00; Admin Dose 20 MG; Start 12/13/16 at 21:00 Morphine Sulfate (morphine) 4 mg Q3H PRN IV PAIN; Start 12/13/16 at 20:00 Ketorolac Tromethamine 15 mg 15 mg Q6H PRN IV PAIN Last administered on 03:28; Admin Dose 15 MG; Start 12/13/16 at 20:30; Stop 12/16/16 at 20:29 Dextrose/Sodium Chloride (D5-NS) 1,000 ml @ 125 mls/hr Q8H IV Last administered on 12/15/16 05:19; Admin Dose 125 MLS/HR; Start 12/14/16 at 09:30 REBECCA DALTON NP Dec 15, 2016 09:45
[2016-12-15] MEDS: FAMOTIDINE 20 MG INJ IV SCH ×2 (09:53→21:35)
[2016-12-15 14:06] VITALS: BP 120/70; RESP 18
--- NOTE | 2016-12-15 16:36 | CONS ---
Date/Time of Note Date/Time of Note DATE: 12/15/16 TIME: 16:35 Assessment/Plan Assessment/Plan Chief Complaint/Hosp Course Patient is a 36-year-old female came to the ER complaining of abdominal pain confined to the epigastric area associated with some nausea. In the ER she was evaluated her liver function tests and CBC both were normal but her lipase was in the range of 19,000 so patient was admitted with the diagnosis of acute pancreatitis. Patient had a multiple gallstone and was found to have 2-3 stones on MR CP. She underwent ERCP and sphincterotomy and 2 large stones were removed each one was about 1-1/2 cm in diameter. And successfully stent was deployed. During the procedure no dye was injected in the pancreatic duct no guidewire was passed into the pancreatic duct. This was a selective cannulation of the bile duct. Problems: Additional Assessment/Plan Additional Assessment/Plan 1. Acute pancreatitis secondary to edema from the sphincterotomy, improving a lot, lipase is down from 19,000-600 2. Status post sphincterotomy and removal of 2 large stones each 1 1-1/2 cm in diameter 3. Gallstone Plan IV fluid at 1 25 cc/h N.p.o. Narcotic for the pain control We will monitor amylase lipase closely Patient wants her gallbladder to be removed during this hospitalization and will do do it once amylase lipase is back to normal Advance diet slowly Consultation Date/Type/Reason Admit Date/Time Dec 13, 2016 at 08:56 Initial Consult Date 12/14/16 Type of Consultation: GENERAL SURGERY 24 HR Interval Summary Constitutional: improved Exam/Review of Systems Vital Signs Vitals Vital Signs Date Time Temp Pulse Resp B/P Pulse Ox O2 Delivery O2 Flow Rate FiO2 12/15/16 14:06 98.4 57 18 120/70 100 12/13/16 10:40 Room Air Intake and Output 12/14/16 12/14/16 12/15/16 15:00 23:00 07:00 Intake Total 620 ml 1000 ml 990 ml Balance 620 ml 1000 ml 990 ml Exam Constitutional: alert, oriented, well developed Psych: nl mood/affect, no complaints Head: atraumatic, normocephalic Eyes: EOMI, PERRL, nl conjunctiva, nl lids, nl sclera ENMT: nl external ears & nose, nl lips & teeth, nl nasal mucosa & septum Neck: non-tender, supple Respiratory: clear to auscultation, normal air movement Cardiovascular: nl pulses, regular rate and rhythm Gastrointestinal: nl liver, spleen, non-tender, soft Musculoskeletal: nl extremities to inspection, nl gait and stance Extremities: normal pulses 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: SMOKEHOUSE OPERATOR II-XII intact, nl mental status, nl speech, nl strength Skin: nl turgor, No rash or lesions Lymph: nl lymph nodes Results Result Diagram: 12/14/1642 12/14/16 0542 Results 24 hrs Laboratory Tests Test 12/15/16 05:09 Total Bilirubin 0.3 Direct Bilirubin 0.00 Indirect Bilirubin 0.3 Aspartate Amino Transf (AST/SGOT) 19 Alanine Aminotransferase (ALT/SGPT) 32 Alkaline Phosphatase 50 Total Protein 5.7 L Albumin 2.9 L Amylase Level 342 #H Lipase 623 H Thyroid Stimulating Hormone (TSH) 3.110 Free Thyroxine Index 3.02 Thyroxine (T4) 7.4 Triiodothyronine (T3) Uptake 40.8 H Medications Medications Current Medications Ondansetron HCl (Zofran Inj) 4 mg Q6H PRN IV NAUSEA AND/OR VOMITING Last administered on 12/15/16 03:26; Admin Dose 4 MG; Start 12/13/16 at 12:30 Acetaminophen (Tylenol Supp) 650 mg Q6H PRN [place] PAIN LEVEL 1-3 OR FEVER; Start 12/13/16 at 12:30 Famotidine (Pepcid Iv) 20 mg Q12 IV Last administered on 12/15/16 09:53; Admin Dose 20 MG; Start 12/13/16 at 21:00 Morphine Sulfate (morphine) 4 mg Q3H PRN IV PAIN; Start 12/13/16 at 20:00 Ketorolac Tromethamine 15 mg 15 mg Q6H PRN IV PAIN Last administered on 03:28; Admin Dose 15 MG; Start 12/13/16 at 20:30; Stop 12/16/16 at 20:29 Dextrose/Sodium Chloride (D5-NS) 1,000 ml @ 125 mls/hr Q8H IV Last administered on 12/15/16 13:45; Admin Dose 125 MLS/HR; Start 12/14/16 at 09:30 DEBBIE HANSEN MD Dec 15, 2016 16:36
[2016-12-15 19:44] VITALS: BP 122/71; RESP 18
[2016-12-16 02:00] VITALS: BP 114/68; RESP 18
[2016-12-16 06:18] LABS: BASOPHILS % 0.4 % (0.0-2.0); EOSINOPHILS # 0.3 10^3/ul (0.0-0.5); EOSINOPHILS % 4.7 % (0.0-7.0); HEMATOCRIT 30.7 % (37.0-47.0); HEMOGLOBIN 10.8 g/dl (12.0-16.0); LYMPHOCYTES # 2.2 10^3/ul (0.8-2.9); LYMPHOCYTES % 32.1 % (15.0-51.0); MEAN CORPUSCULAR HEMOGLOBIN 30.6 pg (29.0-33.0); MEAN CORPUSCULAR HGB CONC 35.2 g/dl (32.0-37.0); MEAN PLATELET VOLUME 10.1 fl (7.4-10.4); MONOCYTE # 0.6 10^3/ul (0.3-0.9); MONOCYTES % 8.7 % (0.0-11.0); NEUTROPHIL # 3.7 10^3/ul (1.6-7.5); PLATELET COUNT 183 10^3/UL (140-415); RED BLOOD COUNT 3.53 10^6/ul (4.20-5.40); RED CELL DISTRIBUTION WIDTH 11.9 % (11.5-14.5); WHITE BLOOD COUNT 6.9 10^3/ul (4.8-10.8)
[2016-12-16] MEDS: DEXTROSE 5%-0.9% NACL 1,000 ML IV SCH (06:34)
[2016-12-16 06:41] LABS: BILIRUBIN,INDIRECT 0.3 mg/dl (0-1.1); BILIRUBIN,TOTAL 0.3 mg/dl (0.2-1.3); TOTAL PROTEIN 5.8 g/dl (6.1-8.1)
[2016-12-16 06:42] LABS: CALCIUM 8.4 mg/dl (8.4-10.2); CREATININE 0.6 mg/dl (0.44-1.00); POTASSIUM 3.9 mmol/L (3.5-5.1)
[2016-12-16 07:31] VITALS: BP 123/72; RESP 18
[2016-12-16] MEDS: FAMOTIDINE 20 MG INJ IV SCH ×2 (09:02→21:30)
--- NOTE | 2016-12-16 09:36 | PN ---
Date/Time of Note Date/Time of Note DATE: 12/16/16 TIME: 09:35 Assessment/Plan Lines/Catheters IV C[facility]ter Type (from [facility]): Peripheral IV Assessment/Plan Assessment/Plan 36-year-old female with post ERCP pancreatitis * Continue IV fluid hydration, pain control * Continue clear liquids * Lipase trending down. Continue to monitor. * Laparoscopic cholecystectomy should be performed upon near normalization of lipase levels and within 6 weeks from the episode of pancreatitis. Plan for Sunday. The above was discussed with the patient in detail. I ensured that all of her questions were answered. Further recommendations will be made based on patient' s clinical course. Subjective 24 Hr Interval Summary Feeling a little better. Tolerating clear liquids. Afebrile. Exam/Review of Systems Vital Signs Vitals Vital Signs Date Time Temp Pulse Resp B/P Pulse Ox O2 Delivery O2 Flow Rate FiO2 12/16/16 07:31 97.5 50 18 123/72 100 12/13/16 10:40 Room Air Intake and Output 12/15/16 12/15/16 12/16/16 15:00 23:00 07:00 Intake Total 1000 ml 960 ml 1950 ml Balance 1000 ml 960 ml 1950 ml Exam Free Text/Dictation GENERAL: Awake, alert, oriented x 3. No acute distress. SKIN: No jaundice. HEENT: PERRLA, EOMI, No Scleral Icterus CARDIOVASCULAR: S1S2, regular rate and rhythm. No murmurs appreciated. RESPIRATORY: Clear to auscultation bilaterally. ABDOMEN: Soft, bowel sounds present, nondistended, nontender to palpation. EXTREMITIES: Free range of motion x 4. No cyanosis, edema, or clubbing. Results Result Diagram: 12/16/16 0538 12/16/16 0538 JAY LEON MD Dec 16, 2016 09:36
[2016-12-16 12:00] VITALS: BP 139/72; RESP 16
--- NOTE | 2016-12-16 12:49 | PN ---
Date/Time of Note Date/Time of Note DATE: 12/16/16 TIME: 12:45 Assessment/Plan VTE Prophylaxis VTE Prophylaxis Intervention: SCD's Lines/Catheters IV Catheter Type (from [facility]): Peripheral IV Assessment/Plan Chief Complaint/Hosp Course 1. Gallstone pancreatitis status post ERCP-improving Plan is for endoscopic cholecystectomy on Sunday Continue clear liquid diet pain control -GI and surgery following 2. Hypernatremia IV fluids with half NS 3 L 3. Recent childbirth/breast-feeding. DVT prophylaxis: SCD/ambulation PUD prophylaxis: Pepcid Problems: Subjective 24 Hr Interval Summary Constitutional: no complaints Exam/Review of Systems Vital Signs Vitals Vital Signs Date Time Temp Pulse Resp B/P Pulse Ox O2 Delivery O2 Flow Rate FiO2 12/16/16 07:31 97.5 50 18 123/72 100 12/13/16 10:40 Room Air Intake and Output 12/15/16 12/15/16 12/16/16 15:00 23:00 07:00 Intake Total 1000 ml 960 ml 1950 ml Balance 1000 ml 960 ml 1950 ml Exam Constitutional: alert, oriented Respiratory: clear to auscultation Cardiovascular: regular rate and rhythm Gastrointestinal: soft, No distended Musculoskeletal: nl extremities to inspection Results Result Diagram: 12/16/16 0538 12/16/16 0538 Results 24 hrs Laboratory Tests Test 12/16/16 05:38 White Blood Count 6.9 # Red Blood Count 3.53 L Hemoglobin 10.8 L Hematocrit 30.7 L Mean Corpuscular Volume 87.0 Mean Corpuscular Hemoglobin 30.6 Mean Corpuscular Hemoglobin Concent 35.2 Red Cell Distribution Width 11.9 Platelet Count 183 Mean Platelet Volume 10.1 Neutrophils % 54.0 Lymphocytes % 32.1 Monocytes % 8.7 Eosinophils % 4.7 Basophils % 0.4 Nucleated Red Blood Cells % 0.0 Neutrophils # 3.7 Lymphocytes # 2.2 Monocytes # 0.6 Eosinophils # 0.3 Basophils # 0.0 Nucleated Red Blood Cells # 0.0 Sodium Level 146 H Potassium Level 3.9 Chloride Level 110 Carbon Dioxide Level 25 Anion Gap 15 Blood Urea Nitrogen 8 Creatinine 0.60 Glucose Level 92 Calcium Level 8.4 Total Bilirubin 0.3 Direct Bilirubin 0.00 Indirect Bilirubin 0.3 Aspartate Amino Transf (AST/SGOT) 16 Alanine Aminotransferase (ALT/SGPT) 27 Alkaline Phosphatase 41 L Total Protein 5.8 L Albumin 3.0 L Amylase Level 187 #H Lipase 582 H Medications Medications Current Medications Ondansetron HCl (Zofran Inj) 4 mg Q6H PRN IV NAUSEA AND/OR VOMITING Last administered on 12/15/16 03:26; Admin Dose 4 MG; Start 12/13/16 at 12:30 Acetaminophen (Tylenol Supp) 650 mg Q6H PRN [place] PAIN LEVEL 1-3 OR FEVER; Start 12/13/16 at 12:30 Famotidine (Pepcid Iv) 20 mg Q12 IV Last administered on 12/16/16 09:02; Admin Dose 20 MG; Start 12/13/16 at 21:00 Morphine Sulfate (morphine) 4 mg Q3H PRN IV PAIN; Start 12/13/16 at 20:00 Ketorolac Tromethamine 15 mg 15 mg Q6H PRN IV PAIN Last administered on 16:39; Admin Dose 15 MG; Start 12/13/16 at 20:30; Stop 12/16/16 at 20:29 Dextrose/Sodium Chloride (D5-NS) 1,000 ml @ 125 mls/hr Q8H IV Last administered on 12/16/16 06:34; Admin Dose 125 MLS/HR; Start 12/14/16 at 09:30 FERNANDEZ DICKERSON Dec 16, 2016 12:48
--- NOTE | 2016-12-16 13:08 | CONS ---
Date/Time of Note Date/Time of Note DATE: 12/16/16 TIME: 13:07 Assessment/Plan Assessment/Plan Chief Complaint/Hosp Course Patient is a 36-year-old female came to the ER complaining of abdominal pain confined to the epigastric area associated with some nausea. In the ER she was evaluated her liver function tests and CBC both were normal but her lipase was in the range of 19,000 so patient was admitted with the diagnosis of acute pancreatitis. Patient had a multiple gallstone and was found to have 2-3 stones on MR CP. She underwent ERCP and sphincterotomy and 2 large stones were removed each one was about 1-1/2 cm in diameter. And successfully stent was deployed. During the procedure no dye was injected in the pancreatic duct no guidewire was passed into the pancreatic duct. This was a selective cannulation of the bile duct. Problems: Additional Assessment/Plan Additional Assessment/Plan 1. Acute pancreatitis secondary to edema from the sphincterotomy, improving a lot, lipase is down from 19,000-600 Patient has no pain and amylase lipase almost back to normal, she is tolerating feeding without any problem 2. Status post sphincterotomy and removal of 2 large stones each 1 1-1/2 cm in diameter 3. Gallstone 4. Heartburn Plan IV fluid at 1 25 cc/h N.p.o. Narcotic for the pain control We will monitor amylase lipase closely Patient wants her gallbladder to be removed during this hospitalization and will do do it once amylase lipase is back to normal Advance diet slowly Mylanta on a needed basis Patient is scheduled for surgery on Sunday Consultation Date/Type/Reason Admit Date/Time Dec 13, 2016 at 08:56 Initial Consult Date 12/14/16 Type of Consultation: GENERAL SURGERY 24 HR Interval Summary Constitutional: improved, no complaints Exam/Review of Systems Vital Signs Vitals Vital Signs Date Time Temp Pulse Resp B/P Pulse Ox O2 Delivery O2 Flow Rate FiO2 12/16/16 07:31 97.5 50 18 123/72 100 12/13/16 10:40 Room Air Intake and Output 12/15/16 12/15/16 12/16/16 15:00 23:00 07:00 Intake Total 1000 ml 960 ml 1950 ml Balance 1000 ml 960 ml 1950 ml Exam Constitutional: alert, oriented, well developed Psych: nl mood/affect, no complaints Head: atraumatic, normocephalic Eyes: EOMI, PERRL, nl conjunctiva, nl lids, nl sclera ENMT: nl external ears & nose, nl lips & teeth, nl nasal mucosa & septum Neck: non-tender, supple Respiratory: clear to auscultation, normal air movement Cardiovascular: nl pulses, regular rate and rhythm Gastrointestinal: nl liver, spleen, non-tender, soft Musculoskeletal: nl extremities to inspection, nl gait and stance Extremities: normal pulses 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, nl mental status, nl speech, nl strength Skin: nl turgor, No rash or lesions Lymph: nl lymph nodes Results Result Diagram: 12/16/1638 12/16/16 0538 Results 24 hrs Laboratory Tests Test 12/16/16 05:38 White Blood Count 6.9 # Red Blood Count 3.53 L Hemoglobin 10.8 L Hematocrit 30.7 L Mean Corpuscular Volume 87.0 Mean Corpuscular Hemoglobin 30.6 Mean Corpuscular Hemoglobin Concent 35.2 Red Cell Distribution Width 11.9 Platelet Count 183 Mean Platelet Volume 10.1 Neutrophils % 54.0 Lymphocytes % 32.1 Monocytes % 8.7 Eosinophils % 4.7 Basophils % 0.4 Nucleated Red Blood Cells % 0.0 Neutrophils # 3.7 Lymphocytes # 2.2 Monocytes # 0.6 Eosinophils # 0.3 Basophils # 0.0 Nucleated Red Blood Cells # 0.0 Sodium Level 146 H Potassium Level 3.9 Chloride Level 110 Carbon Dioxide Level 25 Anion Gap 15 Blood Urea Nitrogen 8 Creatinine 0.60 Glucose Level 92 Calcium Level 8.4 Total Bilirubin 0.3 Direct Bilirubin 0.00 Indirect Bilirubin 0.3 Aspartate Amino Transf (AST/SGOT) 16 Alanine Aminotransferase (ALT/SGPT) 27 Alkaline Phosphatase 41 L Total Protein 5.8 L Albumin 3.0 L Amylase Level 187 #H Lipase 582 H Medications Medications Current Medications Ondansetron HCl (Zofran Inj) 4 mg Q6H PRN IV NAUSEA AND/OR VOMITING Last administered on 12/15/16 03:26; Admin Dose 4 MG; Start 12/13/16 at 12:30 Acetaminophen (Tylenol Supp) 650 mg Q6H PRN [place] PAIN LEVEL 1-3 OR FEVER; Start 12/13/16 at 12:30 Famotidine (Pepcid Iv) 20 mg Q12 IV Last administered on 12/16/16 09:02; Admin Dose 20 MG; Start 12/13/16 at 21:00 Morphine Sulfate (morphine) 4 mg Q3H PRN IV PAIN; Start 12/13/16 at 20:00 Ketorolac Tromethamine 15 mg 15 mg Q6H PRN IV PAIN Last administered on 16:39; Admin Dose 15 MG; Start 12/13/16 at 20:30; Stop 12/16/16 at 20:29 Sodium Chloride (1/2 NS) 1,000 ml @ 125 mls/hr Q8H IV ; Start 12/16/16 at 13:00 ; Stop 12/17/16 at 12:59 DEBBIE HANSEN MD Dec 16, 2016 13:08
[2016-12-16 14:28] VITALS: PULSE 48
[2016-12-16] MEDS ORDERED: AL HYDROX/MG HYDROX/SIMETH 30 ML CUP PO PRN (14:30)
[2016-12-16] MEDS: SOD CHLORIDE 0.45% 1,000 ML IV SCH ×2 (14:30→21:30)
[2016-12-16 19:44] VITALS: BP 149/67; RESP 20
[2016-12-16 23:00] VITALS: BP 155/78; PULSE 48; RESP 18
[2016-12-17] VITALS (13 sets, daily range): BP systolic 131–143; BP diastolic 63–73; PULSE 40–48; RESP 16–21
[2016-12-17] MEDS: SOD CHLORIDE 0.45% 1,000 ML IV SCH (05:00)
[2016-12-17 07:22] LABS: BASOPHILS % 0.6 % (0.0-2.0); EOSINOPHILS # 0.3 10^3/ul (0.0-0.5); EOSINOPHILS % 3.6 % (0.0-7.0); HEMOGLOBIN 11.7 g/dl (12.0-16.0); LYMPHOCYTES # 2.4 10^3/ul (0.8-2.9); LYMPHOCYTES % 35.1 % (15.0-51.0); MEAN CORPUSCULAR HEMOGLOBIN 30.1 pg (29.0-33.0); MEAN CORPUSCULAR HGB CONC 35.5 g/dl (32.0-37.0); MEAN CORPUSCULAR VOLUME 84.8 fl (82.0-101.0); MEAN PLATELET VOLUME 10.1 fl (7.4-10.4); MONOCYTE # 0.5 10^3/ul (0.3-0.9); MONOCYTES % 6.7 % (0.0-11.0); NEUTROPHIL # 3.7 10^3/ul (1.6-7.5); NEUTROPHILS % 53.7 % (39.0-77.0); PLATELET COUNT 209 10^3/UL (140-415); RED BLOOD COUNT 3.89 10^6/ul (4.20-5.40); RED CELL DISTRIBUTION WIDTH 11.7 % (11.5-14.5); WHITE BLOOD COUNT 6.9 10^3/ul (4.8-10.8)
[2016-12-17 08:10] LABS: CALCIUM 8.8 mg/dl (8.4-10.2); CREATININE 0.64 mg/dl (0.44-1.00); MAGNESIUM 1.5 mg/dl (1.7-2.5); PHOSPHORUS 3.8 mg/dl (2.5-4.9); POTASSIUM 3.1 mmol/L (3.5-5.1)
[2016-12-17 08:14] LABS: ALBUMIN 3.3 g/dl (3.3-4.9); BILIRUBIN,INDIRECT 0.4 mg/dl (0-1.1); BILIRUBIN,TOTAL 0.4 mg/dl (0.2-1.3); TOTAL PROTEIN 5.9 g/dl (6.1-8.1)
[2016-12-17] MEDS: FAMOTIDINE 20 MG INJ IV SCH ×2 (08:39→21:13)
--- NOTE | 2016-12-17 14:13 | CONS ---
Date/Time of Note Date/Time of Note DATE: 12/17/16 TIME: 14:12 Assessment/Plan Assessment/Plan Chief Complaint/Hosp Course Patient is a 36-year-old female came to the ER complaining of abdominal pain confined to the epigastric area associated with some nausea. In the ER she was evaluated her liver function tests and CBC both were normal but her lipase was in the range of 19,000 so patient was admitted with the diagnosis of acute pancreatitis. Patient had a multiple gallstone and was found to have 2-3 stones on MR CP. She underwent ERCP and sphincterotomy and 2 large stones were removed each one was about 1-1/2 cm in diameter. And successfully stent was deployed. During the procedure no dye was injected in the pancreatic duct no guidewire was passed into the pancreatic duct. This was a selective cannulation of the bile duct. Problems: Additional Assessment/Plan Additional Assessment/Plan 1. Acute pancreatitis secondary to edema from the sphincterotomy, improving a lot, lipase is down from 19,000-600 Patient has no pain and amylase lipase almost back to normal, she is tolerating feeding without any problem 2. Status post sphincterotomy and removal of 2 large stones each 1 1-1/2 cm in diameter 3. Gallstone 4. Heartburn 5. Sinus bradycardia asymptomatic Plan IV fluid at 1 25 cc/h N.p.o. Narcotic for the pain control We will monitor amylase lipase closely Patient wants her gallbladder to be removed during this hospitalization and will do do it once amylase lipase is back to normal Advance diet slowly Mylanta on a needed basis Patient is scheduled for surgery on Sunday Consultation Date/Type/Reason Admit Date/Time Dec 13, 2016 at 08:56 Initial Consult Date 12/14/16 Type of Consultation: GENERAL SURGERY 24 HR Interval Summary Free Text/Dictation Patient transferred to the floor for sinus bradycardia. She has no abdominal pain no nausea no vomiting. No chest pain no shortness of breath Exam/Review of Systems Vital Signs Vitals Vital Signs Date Time Temp Pulse Resp B/P Pulse Ox O2 Delivery O2 Flow Rate FiO2 12/17/16 12:28 48 12/17/16 11:14 98.6 18 143/63 98 12/17/16 06:20 Nasal Cannula 2.0 Intake and Output 12/16/16 12/16/16 12/17/16 15:00 23:00 07:00 Intake Total 900 ml 760 ml 400 ml Balance 900 ml 760 ml 400 ml Exam Constitutional: alert, oriented, well developed Psych: nl mood/affect, no complaints Head: atraumatic, normocephalic Eyes: EOMI, PERRL, nl conjunctiva, nl lids, nl sclera ENMT: nl external ears & nose, nl lips & teeth, nl nasal mucosa & septum Neck: non-tender, supple Respiratory: clear to auscultation, normal air movement Cardiovascular: nl pulses, regular rate and rhythm Gastrointestinal: nl liver, spleen, non-tender, soft Musculoskeletal: nl extremities to inspection, nl gait and stance Extremities: normal pulses 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, nl mental status, nl speech, nl strength Skin: nl turgor, No rash or lesions Lymph: nl lymph nodes Results Result Diagram: 12/17/1665412/17/16654 Results 24 hrs Laboratory Tests Test 12/17/16 06:55 White Blood Count 6.9 Red Blood Count 3.89 L Hemoglobin 11.7 L Hematocrit 33.0 L Mean Corpuscular Volume 84.8 Mean Corpuscular Hemoglobin 30.1 Mean Corpuscular Hemoglobin Concent 35.5 Red Cell Distribution Width 11.7 Platelet Count 209 Mean Platelet Volume 10.1 Neutrophils % 53.7 Lymphocytes % 35.1 Monocytes % 6.7 Eosinophils % 3.6 Basophils % 0.6 Nucleated Red Blood Cells % 0.0 Neutrophils # 3.7 Lymphocytes # 2.4 Monocytes # 0.5 Eosinophils # 0.3 Basophils # 0.0 Nucleated Red Blood Cells # 0.0 Sodium Level 146 H Potassium Level 3.1 L Chloride Level 108 Carbon Dioxide Level 24 Anion Gap 17 H Blood Urea Nitrogen 3 L Creatinine 0.64 Glucose Level 71 Calcium Level 8.8 Phosphorus Level 3.8 Magnesium Level 1.5 L Total Bilirubin 0.4 Direct Bilirubin 0.00 Indirect Bilirubin 0.4 Aspartate Amino Transf (AST/SGOT) 19 Alanine Aminotransferase (ALT/SGPT) 29 Alkaline Phosphatase 48 Total Protein 5.9 L Albumin 3.3 Amylase Level 111 Lipase 483 H Medications Medications Current Medications Ondansetron HCl (Zofran Inj) 4 mg Q6H PRN IV NAUSEA AND/OR VOMITING Last administered on 12/15/16t 03:26; Admin Dose 4 MG; Start 12/13/16 at 12:30 Acetaminophen (Tylenol Supp) 650 mg Q6H PRN [place] PAIN LEVEL 1-3 OR FEVER; Start 12/13/16 at 12:30 Famotidine (Pepcid Iv) 20 mg Q12 IV Last administered on 12/17/16 08:39; Admin Dose 20 MG; Start 12/13/16 at 21:00 Morphine Sulfate (morphine) 4 mg Q3H PRN IV PAIN; Start 12/13/16 at 20:00 Al Hydrox/Mg Hydrox/Simethicone (Mag-Al Plus) 20 ml Q4H PRN PO GASTROINTESTINAL UPSET Last administered on 12/16/16 14:30; Admin Dose 20 ML; Start 12/16/16 at 14:30 DEBBIE HANSEN MD Dec 17, 2016 14:12
--- NOTE | 2016-12-17 15:45 | PN ---
Date/Time of Note Date/Time of Note DATE: 12/17/16 TIME: 15:43 Assessment/Plan Lines/Catheters IV Catheter Type (from [facility]): Peripheral IV Park in Place (from Nrs): No Assessment/Plan Assessment/Plan 36-year-old female with post ERCP pancreatitis * Lipase trending down. Continue to monitor. * Recommend laparoscopic cholecystectomy; possible open as medical necessity and definitive treatment to prevent further sequelae of gallstone disease which include, but are not limited to: Acute cholecystitis, recurrent choledocholithiasis, recurrent pancreatitis, ascending cholangitis, etc. I discussed the surgical procedure along with all risks and benefits of operative and nonoperative management with the patient at the bedside. She understands and agrees to proceed. * Will schedule for cholecystectomy in a.m. if medically cleared. * N.p.o. after midnight The above was discussed with the patient in detail. I ensured that all of her questions were answered. Further recommendations will be made based on patient' s clinical course. Subjective 24 Hr Interval Summary Transferred to telemetry secondary to bradycardia and shortness of breath. Currently denies shortness of breath. Mild epigastric abdominal pain. Tolerating clear liquids. Afebrile. Exam/Review of Systems Vital Signs Vitals Vital Signs Date Time Temp Pulse Resp B/P Pulse Ox O2 Delivery O2 Flow Rate FiO2 12/17/16 12:28 48 12/17/16 11:14 98.6 18 143/63 98 12/17/16 06:20 Nasal Cannula 2.0 Intake and Output 12/16/16 12/16/16 12/17/16 15:00 23:00 07:00 Intake Total 900 ml 760 ml 400 ml Balance 900 ml 760 ml 400 ml Exam Free Text/Dictation GENERAL: Awake, alert, oriented x 3. No acute distress. SKIN: No jaundice. HEENT: PERRLA, EOMI, No Scleral Icterus CARDIOVASCULAR: S1S2, bradycardic RESPIRATORY: Clear to auscultation bilaterally. ABDOMEN: Soft, bowel sounds present, nondistended, minimal epigastric tenderness to palpation. EXTREMITIES: Free range of motion x 4. No cyanosis, edema, or clubbing. Results Result Diagram: 12/17/16 0655 12/17/16 0655 JAY LEON MD Dec 17, 2016 15:45
[2016-12-17] MEDS ORDERED: MAGNESIUM SULFATE 4 GM/100 ML 100 ML IVPB ONE (19:00)
[2016-12-17] MEDS ORDERED: POTASSIUM CHLORIDE 250 ML IVPB ONE (19:00)
--- NOTE | 2016-12-17 19:00 | PN ---
Date/Time of Note Date/Time of Note DATE: 12/17/16 TIME: 18:53 Assessment/Plan VTE Prophylaxis VTE Prophylaxis Intervention: SCD's Lines/Catheters IV Catheter Type (from Nrs): Peripheral IV Urinary Cath still in place: No Assessment/Plan Chief Complaint/Hosp Course 1. Gallstone pancreatitis status post ERCP-improving but the patient does have pain when she eats -Plan is for cholecystectomy on Sunday -Continue clear liquid diet pain control -GI and surgery following 2. Hypernatremia -IV fluids with D5 W 3. Recent childbirth/breast-feeding 4. Electrolyte disturbance -Replete magnesium and potassium 5. Asymptomatic bradycardia-likely vagal -Monitoring on telemetry 6. Anxiety with hypertension-blood pressure now stable -Patient states that she currently feels better and does not want any medications for her anxiety DVT prophylaxis: SCD/ambulation PUD prophylaxis: Pepcid Problems: Subjective 24 Hr Interval Summary Gastrointestinal: pain Psychological: anxiety Exam/Review of Systems Vital Signs Vitals Vital Signs Date Time Temp Pulse Resp B/P Pulse Ox O2 Delivery O2 Flow Rate FiO2 12/17/16 18:00 43 12/17/16 15:49 97.8 18 140/66 100 12/17/16 06:20 Nasal Cannula 2.0 Intake and Output 12/16/16 12/16/16 12/17/16 15:00 23:00 07:00 Intake Total 900 ml 760 ml 400 ml Balance 900 ml 760 ml 400 ml Exam Constitutional: alert Respiratory: clear to auscultation Cardiovascular: regular rate and rhythm Gastrointestinal: soft, tender, No distended Musculoskeletal: nl extremities to inspection Results Result Diagram: 12/17/16 0655 12/17/16 0655 Results 24 hrs Laboratory Tests Test 12/17/16 06:55 White Blood Count 6.9 Red Blood Count 3.89 L Hemoglobin 11.7 L Hematocrit 33.0 L Mean Corpuscular Volume 84.8 Mean Corpuscular Hemoglobin 30.1 Mean Corpuscular Hemoglobin Concent 35.5 Red Cell Distribution Width 11.7 Platelet Count 209 Mean Platelet Volume 10.1 Neutrophils % 53.7 Lymphocytes % 35.1 Monocytes % 6.7 Eosinophils % 3.6 Basophils % 0.6 Nucleated Red Blood Cells % 0.0 Neutrophils # 3.7 Lymphocytes # 2.4 Monocytes # 0.5 Eosinophils # 0.3 Basophils # 0.0 Nucleated Red Blood Cells # 0.0 Sodium Level 146 H Potassium Level 3.1 L Chloride Level 108 Carbon Dioxide Level 24 Anion Gap 17 H Blood Urea Nitrogen 3 L Creatinine 0.64 Glucose Level 71 Calcium Level 8.8 Phosphorus Level 3.8 Magnesium Level 1.5 L Total Bilirubin 0.4 Direct Bilirubin 0.00 Indirect Bilirubin 0.4 Aspartate Amino Transf (AST/SGOT) 19 Alanine Aminotransferase (ALT/SGPT) 29 Alkaline Phosphatase 48 Total Protein 5.9 L Albumin 3.3 Amylase Level 111 Lipase 483 H Medications Medications Current Medications Ondansetron HCl (Zofran Inj) 4 mg Q6H PRN IV NAUSEA AND/OR VOMITING Last administered on 12/15/16 03:26; Admin Dose 4 MG; Start 12/13/16 at 12:30 Acetaminophen (Tylenol Supp) 650 mg Q6H PRN [place] PAIN LEVEL 1-3 OR FEVER; Start 12/13/16 at 12:30 Famotidine (Pepcid Iv) 20 mg Q12 IV Last administered on 12/17/16 08:39; Admin Dose 20 MG; Start 12/13/16 at 21:00 Morphine Sulfate (morphine) 4 mg Q3H PRN IV PAIN; Start 12/13/16 at 20:00 Al Hydrox/Mg Hydrox/Simethicone (Mag-Al Plus) 20 ml Q4H PRN PO GASTROINTESTINAL UPSET Last administered on 12/16/16 14:30; Admin Dose 20 ML; Start 12/16/16 at 14:30 FERNANDEZ DICKERSON Dec 17, 2016 19:00
[2016-12-17 19:36] LABS: ADD UMIC NO; UR ASCORBIC ACID NEGATIVE (NEGATIVE); UR BILIRUBIN (Dip) NEGATIVE (NEGATIVE); UR BLOOD (Dip) NEGATIVE (NEGATIVE); UR CLARITY CLEAR (CLEAR); UR COLOR STRAW (YELLOW); UR GLUCOSE (Dip) NEGATIVE (NEGATIVE); UR KETONES (Dip) 1+ mg/dL (NEGATIVE); UR LEUKOCYTE ESTERASE (Dip) NEGATIVE Leu/ul (NEGATIVE); UR NITRITE (Dip) NEGATIVE (NEGATIVE); UR SPECIFIC GRAVITY (Dip) 1.009 (1.003-1.030); UR TOTAL PROTEIN (Dip) NEGATIVE (NEGATIVE); UR UROBILINOGEN (Dip) NEGATIVE (NEGATIVE)
[2016-12-17] MEDS: D5W + KCL 20 MEQ 1,000 ML IV SCH (21:04)
[2016-12-18] VITALS (23 sets, daily range): BP systolic 114–140; BP diastolic 60–71; PULSE 44–72; RESP 12–37
[2016-12-18] MEDS: D5W + KCL 20 MEQ 1,000 ML IV SCH ×2 (05:00→15:00)
[2016-12-18 07:00] LABS: BASOPHIL # 0.1 10^3/ul (0.0-0.1); BASOPHILS % 0.8 % (0.0-2.0); EOSINOPHILS # 0.3 10^3/ul (0.0-0.5); HEMATOCRIT 32.3 % (37.0-47.0); HEMOGLOBIN 11.4 g/dl (12.0-16.0); LYMPHOCYTES # 2.3 10^3/ul (0.8-2.9); LYMPHOCYTES % 37.6 % (15.0-51.0); MEAN CORPUSCULAR HEMOGLOBIN 29.8 pg (29.0-33.0); MEAN CORPUSCULAR HGB CONC 35.3 g/dl (32.0-37.0); MEAN CORPUSCULAR VOLUME 84.3 fl (82.0-101.0); MEAN PLATELET VOLUME 10.3 fl (7.4-10.4); MONOCYTE # 0.5 10^3/ul (0.3-0.9); MONOCYTES % 8.6 % (0.0-11.0); NEUTROPHILS % 48.8 % (39.0-77.0); PLATELET COUNT 223 10^3/UL (140-415); RED BLOOD COUNT 3.83 10^6/ul (4.20-5.40); RED CELL DISTRIBUTION WIDTH 11.9 % (11.5-14.5); WHITE BLOOD COUNT 6.2 10^3/ul (4.8-10.8)
[2016-12-18 07:09] LABS: INR 1.06; PROTIME 13.8 Sec (12.2-14.2); PT RATIO 1.1
[2016-12-18 07:14] LABS: ALBUMIN 3.3 g/dl (3.3-4.9); BILIRUBIN,INDIRECT 0.4 mg/dl (0-1.1); BILIRUBIN,TOTAL 0.4 mg/dl (0.2-1.3); TOTAL PROTEIN 5.9 g/dl (6.1-8.1)
[2016-12-18 07:18] LABS: ALBUMIN 3.4 g/dl (3.3-4.9); ALBUMIN/GLOBULIN RATIO 1.17; BILIRUBIN,INDIRECT 0.4 mg/dl (0-1.1); BILIRUBIN,TOTAL 0.4 mg/dl (0.2-1.3); CALCIUM 8.5 mg/dl (8.4-10.2); CREATININE 0.69 mg/dl (0.44-1.00); POTASSIUM 3.3 mmol/L (3.5-5.1); TOTAL PROTEIN 6.3 g/dl (6.1-8.1)
[2016-12-18] MEDS: FAMOTIDINE 20 MG INJ IV SCH ×2 (09:05→21:30)
--- NOTE | 2016-12-18 15:11 | PN ---
Date/Time of Note Date/Time of Note DATE: 12/18/16 TIME: 15:10 Assessment/Plan VTE Prophylaxis VTE Prophylaxis Intervention: SCD's Lines/Catheters IV [facility] (from [facility]): Peripheral IV Urinary Cath still in place: No Assessment/Plan Chief Complaint/Hosp Course 1. Gallstone pancreatitis. Status post ERCP with balloon sweeping and stent placement on 12/12/2016. Patient is scheduled for a cholecystectomy. 2. Sinus bradycardia. The patient is asymptomatic. Thyroid panel within normal limits. Cardiology consult pending. Pending 2D echocardiogram. 3. Hypernatremia. Most probably secondary to dehydration. Continue IV hydration. 4. Recent childbirth. Currently breast-feeding. 5. Fluids, electrolytes, and nutrition. N.p.o. Continue IV fluids. 6. DVT prophylaxis. Bilateral sequential compression devices. 7. Gastrointestinal prophylaxis. Histamine 2 receptor blockers. 8. Plan. Replete potassium. Obtain cardiology consult for cardiac clearance for surgical intervention. Case discussed with Dr. Mahmood. Problems: Subjective 24 Hr Interval Summary Free Text/Dictation Complains of minimal abdominal pain. Denies any nausea. Exam/Review of Systems Vital Signs Vitals Vital Signs Date Time Temp Pulse Resp B/P Pulse Ox O2 Delivery O2 Flow Rate FiO2 12/18/16 12:25 47 12/18/16 11:50 98.2 17 140/68 100 Room Air 12/17/16 06:20 2.0 Intake and Output 12/17/16 12/17/16 12/18/16 15:00 23:00 07:00 Intake Total 1470 ml 650 ml Balance 1470 ml 650 ml Exam General: Adequately build 36 year-old female lying in bed in no apparent distress. HEENT: Normocephalic, atraumatic. Eyes: Anicteric sclerae, conjunctivae clear. ENT: Nasal septum midline, oral mucosa moist. Neck supple, no JVD noticed. Respiratory: Bilaterally clear breath sounds. No use of accessory muscles of respiration. No adventitious breath sounds. Cardiovascular: S1, S2 heard. No murmurs or gallops. Bradycardia. Abdomen: Soft and nondistended. Bowel sounds positive in all 4 quadrants. Minimal epigastric tenderness. Genitourinary: Deferred. Extremities: No cyanosis, no clubbing, no edema. Peripheral pulses palpable. Neurologic: Cranial nerves II through XII grossly intact. The patient is awake, alert, and oriented. Skin: Normal skin turgor. No skin rashes. Results Result Diagram: 12/18/16 0612/18/16 06 Results 24 hrs Laboratory Tests Test 12/17/16 18:30 12/18/16 06:05 Urine Color STRAW Urine Clarity CLEAR Urine pH 7.0 Urine Specific [place] 1.009 Urine Ketones 1+ H Urine Nitrite NEGATIVE Urine Bilirubin NEGATIVE Urine Urobilinogen NEGATIVE Urine Leukocyte Esterase NEGATIVE Urine Hemoglobin NEGATIVE Urine Glucose NEGATIVE Urine Total Protein NEGATIVE Urine Test NEGATIVE White Blood Count 6.2 Red Blood Count 3.83 L Hemoglobin 11.4 L Hematocrit 32.3 L Mean Corpuscular Volume 84.3 Mean Corpuscular Hemoglobin 29.8 Mean Corpuscular Hemoglobin Concent 35.3 Red Cell Distribution Width 11.9 Platelet Count 223 Mean Platelet Volume 10.3 Neutrophils % 48.8 Lymphocytes % 37.6 Monocytes % 8.6 Eosinophils % 4.0 Basophils % 0.8 Nucleated Red Blood Cells % 0.0 Neutrophils # 3.0 Lymphocytes # 2.3 Monocytes # 0.5 Eosinophils # 0.3 Basophils # 0.1 Nucleated Red Blood Cells # 0.0 Prothrombin Time 13.8 Prothrombin Time Ratio 1.1 INR International Normalized Ratio 1.06 Sodium Level 146 H Potassium Level 3.3 L Chloride Level 106 Carbon Dioxide Level 24 Anion Gap 19 H Blood Urea Nitrogen 4 L Creatinine 0.69 Glucose Level 64 L Calcium Level 8.5 Magnesium Level 2.9 #H Total Bilirubin 0.4 Direct Bilirubin 0.00 Indirect Bilirubin 0.4 Aspartate Amino Transf (AST/SGOT) 18 Alanine Aminotransferase (ALT/SGPT) 33 Alkaline Phosphatase 51 Total Protein 6.3 Albumin 3.4 Globulin 2.90 Albumin/Globulin Ratio 1.17 Amylase Level 88 Lipase 442 H Medications Medications Current Medications Ondansetron HCl (Zofran Inj) 4 mg Q6H PRN IV NAUSEA AND/OR VOMITING Last administered on 12/15/16 03:26; Admin Dose 4 MG; Start 12/13/16 at 12:30 Acetaminophen (Tylenol Supp) 650 mg Q6H PRN [place] PAIN LEVEL 1-3 OR FEVER; Start 12/13/16 at 12:30 Famotidine (Pepcid Iv) 20 mg Q12 IV Last administered on 12/18/16 09:05; Admin Dose 20 MG; Start 12/13/16 at 21:00 Morphine Sulfate (morphine) 4 mg Q3H PRN IV PAIN; Start 12/13/16 at 20:00 Al Hydrox/Mg Hydrox/ Simethicone 20 ml 20 ml Q4H PRN PO GASTROINTESTINAL UPSET Last administered on 12/16/16 14:30; Admin Dose 20 ML; Start 12/16/16 at 14:30 Potassium Chloride/Dextrose 1,000 ml @ 100 mls/hr Q10H IV Last administered on 12/17/16 21:04; Admin Dose 100 MLS/HR; Start 12/17/16 at 19:00 Potassium Chloride/Dextrose (KCl/D5W) 265 ml @ 88.333 mls/ hr ONCE ONCE IVPB ; Start 12/18/16 at 16:30; Stop 12/18/16 at 19:29 JOSE E MAIER NP Dec 18, 2016 15:11
--- NOTE | 2016-12-18 15:15 | RADRPT ---
Echocardiogram Report Patient Name: MATTHEW SHAIKH Gender: Female Date: 1980 Study Date: 18-Dec-2016 Wicker Molded Candles: Ronaldo Menon PRATIMA Location: [id number] Ref. Physician: JOSE E MAIER Quality: Good Procedures: Transthoracic echocardiogram with complete 2D, M-Mode, and doppler examination. Indications: Evaluate Left Ventricular function. 2D/M Mode Doppler Measurement Value Normal Ranges Measurement Value Normal Ranges LVIDd 2D 5.4 3.5 - 5.6 cm AV Peak Cecilio 1.7 m/sec LVIDs 2D 2.6 2.1 - 4.1 cm AV Peak PG 11.1 mmHg LVPWd 2D 0.8 0.6 - 1.1 cm LVOT Peak Cecilio 1.3 m/sec IVSd 2D 0.9 0.6 - 1.1 cm LVOT Peak PG 6.7 mmHg AoR Diam 2D 2.2 2.0 - 3.7 cm MV E Peak Cecilio 1.2 m/sec EDV 2D 138.6 cm3 MV A Peak Cecilio 0.5 m/sec ESV 2D 17.4 cm3 MV E/A 2.3 LA Dimen 2D 3.9 2.3 - 4.0 cm MV Decel Time 191 msec MV Decel [place] 6 MV E/A 2.3 TR Peak Cecilio 2.1 m/sec TR Peak PG 17.8 mmHg RVSP 28.0 mmHg Findings Left Ventricle: Normal left ventricular systolic function. Normal left ventricular cavity size. Normal left ventricular wall thickness. Ejection fraction is visually estimated at 65 %. Tissue Doppler/Mitral Doppler indices are within normal limits. Right Ventricle: Normal right ventricular size. Normal right ventricular systolic function. Left Atrium: The left atrium is normal in size. Right Atrium: The right atrium is normal in size. Mitral Valve: Normal appearance and function of the mitral valve with trace physiologic regurgitation. Aortic Valve: Normal appearance of the aortic valve. No significant aortic stenosis or insufficiency. Tricuspid Valve: Normal appearance of the tricuspid valve. Estimated peak PA systolic pressure 28 mmHg. There is trace tricuspid regurgitation. Pulmonic Valve: Normal pulmonic valve appearance. Pericardium: Normal pericardium with no significant pericardial effusion. Aorta: Normal aortic root. IVC: Normal size and normal respiratory collapse consistent with normal right atrial pressure. Conclusions 1.Normal left ventricular systolic function. Normal left ventricular cavity size. Normal left ventricular wall thickness. Ejection fraction is visually estimated at 65 %. Tissue Doppler/Mitral Doppler indices are within normal limits. 2.Normal appearance and function of the mitral valve with trace physiologic regurgitation. 3.Normal appearance of the aortic valve. No significant aortic stenosis or insufficiency. 4.Normal appearance of the tricuspid valve. Estimated peak PA systolic pressure 28 mmHg. There is trace tricuspid regurgitation. Electronically Signed By: Aditya Victor 18-Dec-2016 15:14:08 -0700 Patient Name: MATTHEW SHAIKH Study Date: 18-Dec-2016 [id number]
--- NOTE | 2016-12-18 15:39 | CONS ---
Date/Time of Note Date/Time of Note DATE: 12/18/16 TIME: 15:32 Assessment/Plan Assessment/Plan Additional Assessment/Plan A/P: 1. CV Preop evaluation 2. pancreatitis 3. gallstones 4. asymptomatic sinus bradycardia: with normal TSH and no symptoms 5. hypo K 6. ABDOMINAL PAIN due to above. REC: replace electrolytes prn pt is considered at low risk of CV events for the proposed surgery. no further cardiac work up would be indicated. THANK YOU . Consultation Date/Type/Reason Admit Date/Time Dec 13, 2016 at 08:56 Date of Consultation: Dec 18, 2016 Reason for Consultation bradycardia. CV preop evaluation Referring Provider: JOSE E MAIER NP Hx of Present Illness Thank you for this referral This is a pleasant 36-year-old female who was admitted a few days ago for postop (ERCP) pancreatitis, after she presented with abdominal pain. Patient pancreas has improved and she has been scheduled for laparoscopic cholecystectomy today in about an hour or so. I was kindly asked to evaluate urgently and optimize the patient prior to the proposed surgery. Patient does not chest pain or pressure to me denies any palpitation to me. She denies any syncope or presyncope to me. Patient is a normally she is able to exercise and do cardio with no chest pain or pressure. She has had mild wheezing with running. History was reviewed her heart has been on the low side mostly around 50s but with no reported symptoms syncope presyncope. His abdominal pain is improved as well. Allergies no known drug allergies Past medical history as above only Family history patient grandmother with possibly heart attack at a young age details not clear. Medications were medical to continue her percent reviewed. Review of systems as above mentioned. Constitutional: improved, no complaints Gastrointestinal: pain Psychological: anxiety Past Medical History Medical History: gallstones Social History Smoking Status: Never smoker Exam/Review of Systems Vital Signs Vitals Vital Signs Date Time Temp Pulse Resp B/P Pulse Ox O2 Delivery O2 Flow Rate FiO2 12/18/16 12:25 47 12/18/16 11:50 98.2 17 140/68 100 Room Air 12/17/16 06:20 2.0 Intake and Output 12/17/16 12/17/16 12/18/16 15:00 23:00 07:00 Intake Total 1470 ml 650 ml Balance 1470 ml 650 ml Exam General: no acute distress HEENT: NC/AT. pupils are equal. round. NECK: NO JVD. no stridor. CV: RRR. systolic murmur; no gallop or rubs. PULM: no wheezing or rhonchi. GI: SOFT, NT, mild tenderness, no rebound or guarding Extremity: trace B/L LE edema. no clubbing. neuro: awake and alert, OX3. Psych: calm and pleasant rectal: deferred : normal ECG sinus [place] ECHO reviewed: 1. Normal left ventricular systolic function. Normal left ventricular cavity size. Normal left ventricular wall thickness. Ejection fraction is visually estimated at 65 %. Tissue Doppler/Mitral Doppler indices are within normal limits. 2. Normal appearance and function of the mitral valve with trace physiologic regurgitation. 3. Normal appearance of the aortic valve. No significant aortic stenosis or insufficiency. 4. Normal appearance of the tricuspid valve. Estimated peak PA systolic pressure 28 mmHg. There is trace tricuspid regurgitation. Results Result Diagram: 12/18/16 0612/18/16 0605 Results 24 hrs Laboratory Tests Test 12/17/16 18:30 12/18/16 06:05 Urine Color STRAW Urine Clarity CLEAR Urine pH 7.0 Urine Specific [place] 1.009 Urine Ketones 1+ H Urine Nitrite NEGATIVE Urine Bilirubin NEGATIVE Urine Urobilinogen NEGATIVE Urine Leukocyte Esterase NEGATIVE Urine Hemoglobin NEGATIVE Urine Glucose NEGATIVE Urine Total Protein NEGATIVE Urine Test NEGATIVE White Blood Count 6.2 Red Blood Count 3.83 L Hemoglobin 11.4 L Hematocrit 32.3 L Mean Corpuscular Volume 84.3 Mean Corpuscular Hemoglobin 29.8 Mean Corpuscular Hemoglobin Concent 35.3 Red Cell Distribution Width 11.9 Platelet Count 223 Mean Platelet Volume 10.3 Neutrophils % 48.8 Lymphocytes % 37.6 Monocytes % 8.6 Eosinophils % 4.0 Basophils % 0.8 Nucleated Red Blood Cells % 0.0 Neutrophils # 3.0 Lymphocytes # 2.3 Monocytes # 0.5 Eosinophils # 0.3 Basophils # 0.1 Nucleated Red Blood Cells # 0.0 Prothrombin Time 13.8 Prothrombin Time Ratio 1.1 INR International Normalized Ratio 1.06 Sodium Level 146 H Potassium Level 3.3 L Chloride Level 106 Carbon Dioxide Level 24 Anion Gap 19 H Blood Urea Nitrogen 4 L Creatinine 0.69 Glucose Level 64 L Calcium Level 8.5 Magnesium Level 2.9 #H Total Bilirubin 0.4 Direct Bilirubin 0.00 Indirect Bilirubin 0.4 Aspartate Amino Transf (AST/SGOT) 18 Alanine Aminotransferase (ALT/SGPT) 33 Alkaline Phosphatase 51 Total Protein 6.3 Albumin 3.4 Globulin 2.90 Albumin/Globulin Ratio 1.17 Amylase Level 88 Lipase 442 H Medications Medications Current Medications Ondansetron HCl (Zofran Inj) 4 mg Q6H PRN IV NAUSEA AND/OR VOMITING Last administered on 12/15/16 03:26; Admin Dose 4 MG; Start 12/13/16 at 12:30 Acetaminophen (Tylenol Supp) 650 mg Q6H PRN [place] PAIN LEVEL 1-3 OR FEVER; Start 12/13/16 at 12:30 Famotidine (Pepcid Iv) 20 mg Q12 IV Last administered on 12/18/16 09:05; Admin Dose 20 MG; Start 12/13/16 at 21:00 Morphine Sulfate (morphine) 4 mg Q3H PRN IV PAIN; Start 12/13/16 at 20:00 Al Hydrox/Mg Hydrox/ Simethicone 20 ml 20 ml Q4H PRN PO GASTROINTESTINAL UPSET Last administered on 12/16/16 14:30; Admin Dose 20 ML; Start 12/16/16 at 14:30 Potassium Chloride/Dextrose 1,000 ml @ 100 mls/hr Q10H IV Last administered on 12/17/16 21:04; Admin Dose 100 MLS/HR; Start 12/17/16 at 19:00 Potassium Chloride/Dextrose (KCl/D5W) 265 ml @ 88.333 mls/ hr ONCE ONCE IVPB ; Start 12/18/16 at 16:30; Stop 12/18/16 at 19:29 ALL YANG MD Dec 18, 2016 15:39
--- NOTE | 2016-12-18 15:50 | HPN ---
Date/Time of Note Date/Time of Note DATE: 12/18/16 TIME: 15:50 Interval H&P Admission Note Pt. seen H&P reviewed: No system changes JAY LEON MD Dec 18, 2016 15:50
[2016-12-18] MEDS ORDERED: BUPIVACAINE 0.25%/EPI (SDV) 30 ML INJ ONE (16:01)
--- NOTE | 2016-12-18 16:01 | CONS ---
Date/Time of Note Date/Time of Note DATE: 12/18/16 TIME: 16:00 Assessment/Plan Assessment/Plan Chief Complaint/Hosp Course Patient is a 36-year-old female came to the ER complaining of abdominal pain confined to the epigastric area associated with some nausea. In the ER she was evaluated her liver function tests and CBC both were normal but her lipase was in the range of 19,000 so patient was admitted with the diagnosis of acute pancreatitis. Patient had a multiple gallstone and was found to have 2-3 stones on MR CP. She underwent ERCP and sphincterotomy and 2 large stones were removed each one was about 1-1/2 cm in diameter. And successfully stent was deployed. During the procedure no dye was injected in the pancreatic duct no guidewire was passed into the pancreatic duct. This was a selective cannulation of the bile duct. Problems: Additional Assessment/Plan Additional Assessment/Plan 1. Acute pancreatitis secondary to edema from the sphincterotomy, improving a lot, lipase is down from 19,000-600 Patient has no pain and amylase lipase almost back to normal, she is tolerating feeding without any problem 2. Status post sphincterotomy and removal of 2 large stones each 1 1-1/2 cm in diameter 3. Gallstone 4. Heartburn 5. Sinus bradycardia asymptomatic Plan IV fluid at 1 25 cc/h N.p.o. Narcotic for the pain control We will monitor amylase lipase closely Patient wants her gallbladder to be removed during this hospitalization and will do do it once amylase lipase is back to normal Advance diet slowly Mylanta on a needed basis Patient is scheduled for surgery tomorrow Consultation Date/Type/Reason Admit Date/Time Dec 13, 2016 at 08:56 Initial Consult Date 12/14/16 Type of Consultation: GENERAL SURGERY Referring Provider: JOSE E MAIER NP 24 HR Interval Summary Constitutional: improved, no complaints Exam/Review of Systems Vital Signs Vitals Vital Signs Date Time Temp Pulse Resp B/P Pulse Ox O2 Delivery O2 Flow Rate FiO2 12/18/16 12:25 47 12/18/16 11:50 98.2 17 140/68 100 Room Air 12/17/16 06:20 2.0 Intake and Output 12/17/16 12/17/16 12/18/16 15:00 23:00 07:00 Intake Total 1470 ml 650 ml Balance 1470 ml 650 ml Exam Constitutional: alert, oriented, well developed Psych: nl mood/affect, no complaints Head: atraumatic, normocephalic Eyes: EOMI, PERRL, nl conjunctiva, nl lids, nl sclera ENMT: nl external ears & nose, nl lips & teeth, nl nasal mucosa & septum Neck: non-tender, supple Respiratory: clear to auscultation, normal air movement Cardiovascular: nl pulses, regular rate and rhythm Gastrointestinal: nl liver, spleen, non-tender, soft Musculoskeletal: nl extremities to inspection, nl gait and stance Extremities: normal pulses 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: HOT PACKER II-XII intact, nl mental status, nl speech, nl strength Skin: nl turgor, No rash or lesions Lymph: nl lymph nodes Results Result Diagram: 12/18/1660412/18/16604 Results 24 hrs Laboratory Tests Test 12/17/16 18:30 12/18/16 06:05 Urine Color STRAW Urine Clarity CLEAR Urine pH 7.0 Urine Specific [place] 1.009 Urine Ketones 1+ H Urine Nitrite NEGATIVE Urine Bilirubin NEGATIVE Urine Urobilinogen NEGATIVE Urine Leukocyte Esterase NEGATIVE Urine Hemoglobin NEGATIVE Urine Glucose NEGATIVE Urine Total Protein NEGATIVE Urine Test NEGATIVE White Blood Count 6.2 Red Blood Count 3.83 L Hemoglobin 11.4 L Hematocrit 32.3 L Mean Corpuscular Volume 84.3 Mean Corpuscular Hemoglobin 29.8 Mean Corpuscular Hemoglobin Concent 35.3 Red Cell Distribution Width 11.9 Platelet Count 223 Mean Platelet Volume 10.3 Neutrophils % 48.8 Lymphocytes % 37.6 Monocytes % 8.6 Eosinophils % 4.0 Basophils % 0.8 Nucleated Red Blood Cells % 0.0 Neutrophils # 3.0 Lymphocytes # 2.3 Monocytes # 0.5 Eosinophils # 0.3 Basophils # 0.1 Nucleated Red Blood Cells # 0.0 Prothrombin Time 13.8 Prothrombin Time Ratio 1.1 INR International Normalized Ratio 1.06 Sodium Level 146 H Potassium Level 3.3 L Chloride Level 106 Carbon Dioxide Level 24 Anion Gap 19 H Blood Urea Nitrogen 4 L Creatinine 0.69 Glucose Level 64 L Calcium Level 8.5 Magnesium Level 2.9 #H Total Bilirubin 0.4 Direct Bilirubin 0.00 Indirect Bilirubin 0.4 Aspartate Amino Transf (AST/SGOT) 18 Alanine Aminotransferase (ALT/SGPT) 33 Alkaline Phosphatase 51 Total Protein 6.3 Albumin 3.4 Globulin 2.90 Albumin/Globulin Ratio 1.17 Amylase Level 88 Lipase 442 H Medications Medications Current Medications Ondansetron HCl (Zofran Inj) 4 mg Q6H PRN IV NAUSEA AND/OR VOMITING Last administered on 12/15/16 03:26; Admin Dose 4 MG; Start 12/13/16 at 12:30 Acetaminophen (Tylenol Supp) 650 mg Q6H PRN [place] PAIN LEVEL 1-3 OR FEVER; Start 12/13/16 at 12:30 Famotidine (Pepcid Iv) 20 mg Q12 IV Last administered on 12/18/16 09:05; Admin Dose 20 MG; Start 12/13/16 at 21:00 Morphine Sulfate (morphine) 4 mg Q3H PRN IV PAIN; Start 12/13/16 at 20:00 Al Hydrox/Mg Hydrox/ Simethicone 20 ml 20 ml Q4H PRN PO GASTROINTESTINAL UPSET Last administered on 12/16/16 14:30; Admin Dose 20 ML; Start 12/16/16 at 14:30 Potassium Chloride/Dextrose 1,000 ml @ 100 mls/hr Q10H IV Last administered on 12/17/16 21:04; Admin Dose 100 MLS/HR; Start 12/17/16 at 19:00 Potassium Chloride/Dextrose (KCl/D5W) 265 ml @ 88.333 mls/ hr ONCE ONCE IVPB ; Start 12/18/16 at 16:30; Stop 12/18/16 at 19:29 DEBBIE HANSEN MD Dec 18, 2016 16:01
[2016-12-18] MEDS ORDERED: MIDAZOLAM 1 MG/ML 2 ML INJ ONE (16:29)
[2016-12-18] MEDS ORDERED: LIDOCAINE 2% (SDV) 5 ML INJ ONE (16:29)
[2016-12-18] MEDS ORDERED: ROCURONIUM 50 MG INJ ONE (16:29)
[2016-12-18] MEDS ORDERED: FENTAnyl 50 MCG/ML VIAL ONE ×2 (16:29→18:07)
[2016-12-18] MEDS ORDERED: SUCCINYLCHOLINE CHLORIDE 100 MG/5 ML SYG IV ONE (16:29)
[2016-12-18] MEDS ORDERED: PROPOFOL 20 ML ONE (16:29)
[2016-12-18] MEDS ORDERED: POTASSIUM CHLORIDE 30 MEQ in DEXTROSE 5% 250 ML IVPB ONE (16:30)
[2016-12-18] MEDS ORDERED: CEFAZOLIN 1 GM INJ ONE (16:31)
[2016-12-18] MEDS ORDERED: ONDANSETRON 4 MG INJ ONE (17:06)
[2016-12-18] MEDS ORDERED: METOCLOPRAMIDE 10 MG INJ ONE (17:06)
[2016-12-18] MEDS ORDERED: DEXAMETHASONE 4 MG/ML 1 ML INJ ONE (17:06)
[2016-12-18] MEDS ORDERED: ACETAMINOPHEN 1000MG/100ML IV 100 ML ONE (17:24)
[2016-12-18] MEDS ORDERED: HYDROmorphONE (0.2 MG/ML) 10ML SYG IV PRN ×2 (17:30)
[2016-12-18] MEDS ORDERED: FENTAnyl 50 MCG/ML VIAL IV PRN (17:30)
[2016-12-18] MEDS ORDERED: MEPERIDINE 25 MG INJ IV PRN (17:30)
[2016-12-18] MEDS ORDERED: ONDANSETRON 4 MG INJ IV PRN ×2 (17:30→18:30)
[2016-12-18] MEDS ORDERED: DIPHENHYDRAMINE 50 MG INJ IV PRN (17:30)
[2016-12-18] MEDS ORDERED: KETOROLAC 30 MG INJ IV PRN (17:30)
[2016-12-18] MEDS ORDERED: PROCHLORPERAZINE 10 MG INJ IV PRN (17:30)
[2016-12-18] MEDS ORDERED: EPHEDrine SULFATE 50 MG/5 ML SYG ONE (17:56)
[2016-12-18] MEDS ORDERED: KETOROLAC 30 MG INJ ONE (17:56)
[2016-12-18] MEDS ORDERED: GLYCOPYRROLATE 0.4 MG INJ ONE (17:57)
[2016-12-18] MEDS ORDERED: NEOSTIGMINE 3 MG/3 ML SYRINGE ONE (17:57)
--- NOTE | 2016-12-18 18:29 | OPR ---
Date/Time of Note Date/Time of Note DATE: 12/18/16 TIME: 18:20 Operative Report Procedure Date: Dec 18, 2016 Preoperative Diagnosis 1. Acute pancreatitis 2. Choledocholithiasis 3. Chronic cholecystitis/cholelithiasis Postoperative Diagnosis 1. Acute pancreatitis 2. Choledocholithiasis 3. Chronic cholecystitis/cholelithiasis Operation Performed 1. Laparoscopic cholecystectomy 2. Placement of drain Surgeon: JAY LEON MD Routeman: KENDALL LAKE MD Anesthesia: general Anesthesiologist: CHERY ZEPEDA MD Estimated Blood Loss: minimal Specimens Gallbladder Tubes/Drains 19 Macedonian round Satish drain Complications: None Pt Condition Post Procedure: stable Disposition: PACU Indications The patient is a 36-year-old female with a history of chronic cholecystitis/ cholelithiasis and choledocholithiasis. Patient underwent a recent outpatient ERCP with extraction of multiple large common bile duct stones and stent placement. She subsequently developed abdominal pain posterior procedure. She was found to have markedly elevated lipase levels. Diagnosis of acute pancreatitis was made. She was admitted, started on IV fluids and pain control. Upon near normalization of her lipase levels the patient was scheduled for laparoscopic cholecystectomy; possible open as definitive treatment to prevent further sequelae of gallstone disease which include but are not limited to: Gangrenous cholecystitis, choledocholithiasis, gallstone pancreatitis, ascending cholangitis, etc. All risks and benefits of the procedure including but not limited to: Wound infection, excessive bleeding, common bile duct injury, postoperative biliary leak, retained common bile duct stone, injury to intra-abdominal organs, conversion to open procedure, possible need for subsequent surgeries, etc. were all explained to the patient in full detail. She fully understood and wished to proceed with the procedure. Informed consent was therefore obtained. Operative\Procedure Findings Adhesions of the omentum to the gallbladder. Chronic scarring consistent with prior attacks of chronic cholecystitis. Dilated cystic duct impacted with stones. Procedure Description The patient was brought to the operating room and placed supine on the operating table. Bilateral sequential compression devices were placed on both lower extremities. A dose of broad-spectrum perioperative intravenous antibiotics was given. After the induction of smooth general endotracheal anesthesia the patient's abdomen was prepped and draped in the standard surgical fashion. After performance of the surgical timeout a 5 mm incision was made in the inferior umbilicus and a Veress needle was used to access the intra- abdominal cavity atraumatically. Pneumoperitoneum was then obtained and the Veress needle was exchanged for a 5 mm trocar through which a 5 mm laparoscope was placed. Three further working ports were then placed a 12 mm port in the sub -xiphoid region and two 5 mm ports in the right upper quadrant. All port sites were anesthetized with 0.25% Marcaine with epinephrine prior to incision. There were adhesions of the omentum to the anterior surface of the gallbladder. These were quite dense. The adhesions were taken down using a combination of blunt dissection and hook electrocautery. Using atraumatic graspers the gallbladder was grasped and retracted superiorly and laterally exposing the area of Calderon's pouch. Dissection was begun in this area using a combination of blunt dissection and hook electrocautery. A dilated cystic duct was identified as it entered straight into the neck of the gallbladder. The cystic duct was dissected free of surrounding tissues and a critical view was obtained. The duct was too dilated to transect with a clip manager income tax, therefore a laparoscopic NATALIE stapler was used to transect the cystic duct. The cystic duct was found to be impacted with stones. There is some oozing from the corner of the staple line. This was controlled with clips. Dissection was then continued posteriorly. The cystic artery was identified and dissected free of surrounding tissues. It was clipped proximally and transected using EndoShears. The gallbladder was then dissected off the liver bed using electrocautery. Once completely free the gallbladder was placed in an Endo Catch bag and withdrawn through the subxiphoid port site and passed off the field as specimen. Hemostasis was then inspected for and noted to be total. The abdomen was then irrigated with several liters of warm normal saline and the irrigant returned crystal clear. Due to the nature of the chronic inflammation and impaction of cystic duct with stones was decided to leave a 19 [place] round Satish drain in the area of the cystic duct transection in the event of biliary leak. The drain was brought out through the lateralmost port site and secured in place using a 2-0 nylon suture and hooked up to bulb suction. The fascia of the subxiphoid port site was then reapproximated using an endo-close device and 0 Vicryl suture. Pneumoperitoneum was then released and all remaining trochars were withdrawn under direct vision. The subcutaneous tissues were irrigated with more warm normal saline and further local anesthesia was applied around the skin of the incision sites. The skin was then reapproximated using 4-0 Monocryl sutures in subcuticular fashion. The incisions were cleaned and Dermabond was applied to the incisions as well as drain dressing and the patient was awoken from anesthesia and transported to the recovery room in stable condition. All counts were correct at the end of the case x 2. JAY LEON MD Dec 18, 2016 18:28
[2016-12-18] MEDS ORDERED: HYDROCODONE/APAP (5/325) TAB PO PRN (18:30)
[2016-12-18] MEDS ORDERED: ACETAMINOPHEN 325 MG TAB PO PRN (18:30)
[2016-12-18] MEDS ORDERED: POTASSIUM CHLORIDE 30 MEQ in DEXTROSE 5% 250 ML IVPB SCH (21:00)
[2016-12-18] MEDS: DOCUSATE SODIUM 100 MG CAP PO SCH (21:30)
[2016-12-19] VITALS (11 sets, daily range): BP systolic 101–118; BP diastolic 53–67; PULSE 50–80; RESP 15–18
[2016-12-19] MEDS: D5W + KCL 20 MEQ 1,000 ML IV SCH ×2 (02:00→11:00)
[2016-12-19 06:45] LABS: BASOPHILS % 0.2 % (0.0-2.0); HEMATOCRIT 33.7 % (37.0-47.0); HEMOGLOBIN 11.8 g/dl (12.0-16.0); LYMPHOCYTES # 1.1 10^3/ul (0.8-2.9); LYMPHOCYTES % 12.5 % (15.0-51.0); MEAN CORPUSCULAR HEMOGLOBIN 29.5 pg (29.0-33.0); MEAN CORPUSCULAR VOLUME 84.3 fl (82.0-101.0); MEAN PLATELET VOLUME 10.1 fl (7.4-10.4); MONOCYTE # 0.4 10^3/ul (0.3-0.9); MONOCYTES % 4.7 % (0.0-11.0); NEUTROPHILS % 82.2 % (39.0-77.0); PLATELET COUNT 263 10^3/UL (140-415); RED CELL DISTRIBUTION WIDTH 11.7 % (11.5-14.5); WHITE BLOOD COUNT 8.5 10^3/ul (4.8-10.8)
[2016-12-19 07:13] LABS: ALBUMIN 3.5 g/dl (3.3-4.9); ALBUMIN/GLOBULIN RATIO 1.06; BILIRUBIN,INDIRECT 0.2 mg/dl (0-1.1); BILIRUBIN,TOTAL 0.2 mg/dl (0.2-1.3); CREATININE 0.64 mg/dl (0.44-1.00); POTASSIUM 4.6 mmol/L (3.5-5.1); TOTAL PROTEIN 6.8 g/dl (6.1-8.1)
[2016-12-19 07:41] LABS: MAGNESIUM 1.8 mg/dl (1.7-2.5); PHOSPHORUS 4.6 mg/dl (2.5-4.9)
[2016-12-19 07:42] LABS: AMYLASE 62 U/L (11-123)
--- NOTE | 2016-12-19 09:47 | PN ---
Date/Time of Note Date/Time of Note DATE: 12/19/16 TIME: 09:45 Assessment/Plan Lines/Catheters IV Catheter Type (from Nrs): Peripheral IV Park in Place (from Nrs): No Assessment/Plan Assessment/Plan 36-year-old female status post laparoscopic cholecystectomy and drain placement postop day #1 * LFTs and lipase level normal. Continue to monitor * Continue drain for now * Advance diet as tolerated * Out of bed/incentive spirometry * Hep-Lock IV fluids * Possible discharge home tomorrow if remains stable The above was discussed with the patient in detail. I ensured that all of her questions were answered. Further recommendations will be made based on patient' s clinical course. Subjective 24 Hr Interval Summary Complains of left upper quadrant abdominal pain. No right upper quadrant pain. Tolerating clear liquids. Afebrile. Drain output 45 cc serosanguineous. Exam/Review of Systems Vital Signs Vitals Vital Signs Date Time Temp Pulse Resp B/P Pulse Ox O2 Delivery O2 Flow Rate FiO2 12/19/16 08:46 74 12/19/16 07:43 98.9 18 101/53 98 12/18/16 18:37 Room Air 12/17/16 06:20 2.0 Intake and Output 12/18/16 12/18/16 12/19/16 15:00 23:00 07:00 Intake Total 1500 ml Output Total 73 ml Balance 1427 ml Exam Free Text/Dictation GENERAL: Awake, alert, oriented x 3. No acute distress. SKIN: No jaundice. HEENT: PERRLA, EOMI, No Scleral Icterus CARDIOVASCULAR: S1S2, bradycardic RESPIRATORY: Clear to auscultation bilaterally. ABDOMEN: Soft, bowel sounds present, nondistended, appropriate incisional tenderness to palpation INCISIONS: Clean, dry, intact EXTREMITIES: Free range of motion x 4. No cyanosis, edema, or clubbing. Results Result Diagram: 12/19/16 0555 12/19/16 0555 JAY LEON MD Dec 19, 2016 09:47
[2016-12-19] MEDS: DOCUSATE SODIUM 100 MG CAP PO SCH ×2 (09:50→20:36)
[2016-12-19] MEDS: FAMOTIDINE 20 MG INJ IV SCH ×2 (09:50→20:38)
--- NOTE | 2016-12-19 10:23 | PN ---
Date/Time of Note Date/Time of Note DATE: 12/19/16 TIME: 10:20 Assessment/Plan VTE Prophylaxis VTE Prophylaxis Intervention: ambulation, SCD's Lines/Catheters IV [facility] Peripheral IV Urinary Cath still in place: No Assessment/Plan Chief Complaint/Hosp Course 1. Gallstone pancreatitis with choledocholithiasis and chronic cholecystitis. Status post ERCP with balloon sweeping and stent placement on 12/12/2016. Status post laparoscopic cholecystectomy on 12/18/2016 with placement of a drain. Continue pain control. Continue incentive spirometry. Encourage ambulation. Advancement of diet as per surgery 2. Sinus bradycardia. The patient is asymptomatic. Thyroid panel within normal limits. Status post evaluation by cardiology. 2D echocardiogram showing preserved left ventricular ejection fraction. 3. Hypernatremia. Most probably secondary to dehydration. Resolved with IV hydration. 4. Recent childbirth. Currently breast-feeding. 5. Fluids, electrolytes, and nutrition. Currently on clear liquids. Advancement of diet as per surgery. 6. DVT prophylaxis. Bilateral sequential compression devices. 7. Gastrointestinal prophylaxis. Histamine 2 receptor blockers. 8. Plan. Continue postoperative care. Encourage frequent ambulation and frequent use of incentive spirometry. Advancement of diet as per surgery. Plan is to discharge the patient home once cleared by surgery. Case discussed with Dr. Mahmood. Problems: Subjective 24 Hr Interval Summary Free Text/Dictation Abdominal pain well controlled. Tolerating oral intake. Exam/Review of Systems Vital Signs Vitals Vital Signs Date Time Temp Pulse Resp B/P Pulse Ox O2 Delivery O2 Flow Rate FiO2 12/19/16 08:46 74 12/19/16 07:43 98.9 18 101/53 98 12/18/16 18:37 Room Air 12/17/16 06:20 2.0 Intake and Output 12/18/16 12/18/16 12/19/16 15:00 23:00 07:00 Intake Total 1500 ml Output Total 73 ml Balance 1427 ml Exam General: Adequately build 36 year-old female lying in bed in no apparent distress. HEENT: Normocephalic, atraumatic. Eyes: Anicteric sclerae, conjunctivae clear. ENT: Nasal septum midline, oral mucosa moist. Neck supple, no JVD noticed. Respiratory: Bilaterally clear breath sounds. No use of accessory muscles of respiration. No adventitious breath sounds. Cardiovascular: S1, S2 heard. No murmurs or gallops. Bradycardia. Abdomen: Soft and nondistended. Bowel sounds hypoactive in all 4 quadrants. Laparoscopic incision sites with surgical glue on it. Right upper quadrant DAMARIS drain in place draining sanguinous secretions. Natalee-incisional tenderness. Genitourinary: Deferred. Extremities: No cyanosis, no clubbing, no edema. Peripheral pulses palpable. Neurologic: Cranial nerves II through XII grossly intact. The patient is awake, alert, and oriented. Skin: Normal skin turgor. No skin rashes. Results Result Diagram: 12/19/1655412/19/16554 Results 24 hrs Laboratory Tests Test 12/19/16 05:55 White Blood Count 8.5 # Red Blood Count 4.00 L Hemoglobin 11.8 L Hematocrit 33.7 L Mean Corpuscular Volume 84.3 Mean Corpuscular Hemoglobin 29.5 Mean Corpuscular Hemoglobin Concent 35.0 Red Cell Distribution Width 11.7 Platelet Count 263 Mean Platelet Volume 10.1 Neutrophils % 82.2 H Lymphocytes % 12.5 L Monocytes % 4.7 Eosinophils % 0.0 Basophils % 0.2 Nucleated Red Blood Cells % 0.0 Neutrophils # 7.0 Lymphocytes # 1.1 Monocytes # 0.4 Eosinophils # 0.0 Basophils # 0.0 Nucleated Red Blood Cells # 0.0 Sodium Level 141 Potassium Level 4.6 Chloride Level 103 Carbon Dioxide Level 22 Anion Gap 21 H Blood Urea Nitrogen 6 L Creatinine 0.64 Glucose Level 123 # Calcium Level 9.0 Phosphorus Level 4.6 Magnesium Level 1.8 Total Bilirubin 0.2 Direct Bilirubin 0.00 Indirect Bilirubin 0.2 Aspartate Amino Transf (AST/SGOT) 33 Alanine Aminotransferase (ALT/SGPT) 31 Alkaline Phosphatase 51 Total Protein 6.8 Albumin 3.5 Globulin 3.30 H Albumin/Globulin Ratio 1.06 Amylase Level 62 Lipase 153 Medications Medications Current Medications Ondansetron HCl (Zofran Inj) 4 mg Q6H PRN IV NAUSEA AND/OR VOMITING Last administered on 12/15/16 03:26; Admin Dose 4 MG; Start 12/13/16 at 12:30 Acetaminophen (Tylenol Supp) 650 mg Q6H PRN [place] PAIN LEVEL 1-3 OR FEVER; Start 12/13/16 at 12:30 Famotidine (Pepcid Iv) 20 mg Q12 IV Last administered on 12/19/16 09:50; Admin Dose 20 MG; Start 12/13/16 at 21:00 Morphine Sulfate (morphine) 4 mg Q3H PRN IV PAIN; Start 12/13/16 at 20:00 Al Hydrox/Mg Hydrox/ Simethicone 20 ml 20 ml Q4H PRN PO GASTROINTESTINAL UPSET Last administered on 12/16/16 14:30; Admin Dose 20 ML; Start 12/16/16 at 14:30 Potassium Chloride/Dextrose (D5W + KCl 20 Meq) 1,000 ml @ 100 mls/hr Q10H IV Last administered on 12/19/16 02:00; Admin Dose 100 MLS/HR; Start 12/17/16 at 19:00 Ondansetron HCl (Zofran Inj) 4 mg Q6H PRN IV NAUSEA AND/OR VOMITING; Start at 18:30 Acetaminophen (Tylenol Tab) 650 mg Q6H PRN PO PAIN AND OR ELEVATED TEMP; Start 12/18/16 at 18:30 Acetaminophen/ Hydrocodone Bitart ([place] (5/325)) 1 tab Q6H PRN PO PAIN LEVEL 6 -10; Start 12/18/16 at 18:30 Docusate Sodium (Colace) 100 mg BID PO Last administered on 12/19/16 09:50; Admin Dose 100 MG; Start 12/18/16 at 21:00 JOSE E MAIER NP Dec 19, 2016 10:23
--- NOTE | 2016-12-19 15:26 | PN ---
Date/Time of Note Date/Time of Note DATE: 12/19/16 TIME: 15:24 Assessment/Plan VTE Prophylaxis VTE Prophylaxis Intervention: other Lines/Catheters IV Catheter Type (from Nrsg): Peripheral IV Urinary Cath still in place: No Assessment/Plan Chief Complaint/Hosp Course 1. CV Preop evaluation 2. pancreatitis 3. gallstones 4. asymptomatic sinus bradycardia: with normal TSH and no symptoms 5. hypo K 6. ABDOMINAL PAIN due to above. REC: replace electrolytes prn S/P SURGERY cont post op care ok to de tele from cardiac stand point Problems: Subjective 24 Hr Interval Summary Free Text/Dictation D/W STAFF and rhythm was reviewed. pt remains in NSR/ SINUS YESIKA NO syncope or presyncope no cp s/p abd surgery. mild abd pain OBJECTIVE: General: no acute distress HEENT: NC/AT. pupils are equal. round. NECK: NO JVD. no stridor. CV: RRR. systolic murmur; no gallop or rubs. PULM: no wheezing or rhonchi. GI: SOFT, NT, mild tenderness, no rebound or guarding Extremity: trace B/L LE edema. no clubbing. neuro: awake and alert, OX3. Psych: calm and pleasant rectal: deferred : normal ECG sinus yesika ECHO reviewed: 1. Normal left ventricular systolic function. Normal left ventricular cavity size. Normal left ventricular wall thickness. Ejection fraction is visually estimated at 65 %. Tissue Doppler/Mitral Doppler indices are within normal limits. 2. Normal appearance and function of the mitral valve with trace physiologic regurgitation. 3. Normal appearance of the aortic valve. No significant aortic stenosis or insufficiency. 4. Normal appearance of the tricuspid valve. Estimated peak PA systolic pressure 28 mmHg. There is trace tricuspid regurgitation. Exam/Review of Systems Vital Signs Vitals Vital Signs Date Time Temp Pulse Resp B/P Pulse Ox O2 Delivery O2 Flow Rate FiO2 12/19/16 13:13 50 12/19/16 11:13 98.3 18 111/61 100 12/18/16 18:37 Room Air 12/17/16 06:20 2.0 Intake and Output 12/18/16 12/18/16 12/19/16 15:00 23:00 07:00 Intake Total 1500 ml Output Total 73 ml Balance 1427 ml Results Result Diagram: 12/19/16 0555 12/19/16 0555 Results 24 hrs Laboratory Tests Test 12/19/16 05:55 White Blood Count 8.5 # Red Blood Count 4.00 L Hemoglobin 11.8 L Hematocrit 33.7 L Mean Corpuscular Volume 84.3 Mean Corpuscular Hemoglobin 29.5 Mean Corpuscular Hemoglobin Concent 35.0 Red Cell Distribution Width 11.7 Platelet Count 263 Mean Platelet Volume 10.1 Neutrophils % 82.2 H Lymphocytes % 12.5 L Monocytes % 4.7 Eosinophils % 0.0 Basophils % 0.2 Nucleated Red Blood Cells % 0.0 Neutrophils # 7.0 Lymphocytes # 1.1 Monocytes # 0.4 Eosinophils # 0.0 Basophils # 0.0 Nucleated Red Blood Cells # 0.0 Sodium Level 141 Potassium Level 4.6 Chloride Level 103 Carbon Dioxide Level 22 Anion Gap 21 H Blood Urea Nitrogen 6 L Creatinine 0.64 Glucose Level 123 # Calcium Level 9.0 Phosphorus Level 4.6 Magnesium Level 1.8 Total Bilirubin 0.2 Direct Bilirubin 0.00 Indirect Bilirubin 0.2 Aspartate Amino Transf (AST/SGOT) 33 Alanine Aminotransferase (ALT/SGPT) 31 Alkaline Phosphatase 51 Total Protein 6.8 Albumin 3.5 Globulin 3.30 H Albumin/Globulin Ratio 1.06 Amylase Level 62 Lipase 153 Medications Medications Current Medications Acetaminophen (Tylenol Supp) 650 mg Q6H PRN [place] PAIN LEVEL 1-3 OR FEVER; Start 12/13/16 at 12:30 Famotidine (Pepcid Iv) 20 mg Q12 IV Last administered on 12/19/16 09:50; Admin Dose 20 MG; Start 12/13/16 at 21:00 Morphine Sulfate (morphine) 4 mg Q3H PRN IV PAIN; Start 12/13/16 at 20:00 Al Hydrox/Mg Hydrox/Simethicone (Mag-Al Plus) 20 ml Q4H PRN PO GASTROINTESTINAL UPSET Last administered on 12/16/16 14:30; Admin Dose 20 ML; Start 12/16/16 at 14:30 Ondansetron HCl (Zofran Inj) 4 mg Q6H PRN IV NAUSEA AND/OR VOMITING; Start at 18:30 Acetaminophen (Tylenol Tab) 650 mg Q6H PRN PO PAIN AND OR ELEVATED TEMP; Start 12/18/16 at 18:30 Acetaminophen/ Hydrocodone Bitart ([place] (5/325)) 1 tab Q6H PRN PO PAIN LEVEL 6 -10; Start 12/18/16 at 18:30 Docusate Sodium (Colace) 100 mg BID PO Last administered on 12/19/16t 09:50; Admin Dose 100 MG; Start 12/18/16 at 21:00 ALL YANG MD Dec 19, 2016 15:26
--- NOTE | 2016-12-19 19:30 | CONS ---
Date/Time of Note Date/Time of Note DATE: 12/19/16 TIME: 19:28 Assessment/Plan Assessment/Plan Chief Complaint/Hosp Course Patient is a 36-year-old female came to the ER complaining of abdominal pain confined to the epigastric area associated with some nausea. In the ER she was evaluated her liver function tests and CBC both were normal but her lipase was in the range of 19,000 so patient was admitted with the diagnosis of acute pancreatitis. Patient had a multiple gallstone and was found to have 2-3 stones on MR CP. She underwent ERCP and sphincterotomy and 2 large stones were removed each one was about 1-1/2 cm in diameter. And successfully stent was deployed. During the procedure no dye was injected in the pancreatic duct no guidewire was passed into the pancreatic duct. This was a selective cannulation of the bile duct. Problems: Additional Assessment/Plan Additional Assessment/Plan 1. Acute pancreatitis secondary to edema from the sphincterotomy, improving a lot, lipase is down from 19,000-600 Patient has no pain and amylase lipase almost back to normal, she is tolerating feeding without any problem 2. Status post sphincterotomy and removal of 2 large stones each 1 1-1/2 cm in diameter 3. Gallstone 4. Heartburn 5. Sinus bradycardia asymptomatic 6. Status post cholecystectomy, with a DAMARIS drainage. Plan Continue postop care Consultation Date/Type/Reason Admit Date/Time Dec 13, 2016 at 08:56 Initial Consult Date 12/14/16 Type of Consultation: GENERAL SURGERY Referring Provider: JOSE E MAIER NP 24 HR Interval Summary Constitutional: improved Exam/Review of Systems Vital Signs Vitals Vital Signs Date Time Temp Pulse Resp B/P Pulse Ox O2 Delivery O2 Flow Rate FiO2 12/19/16 16:49 61 12/19/16 15:48 98.1 17 106/64 99 12/18/16 18:37 Room Air 12/17/16 06:20 2.0 Intake and Output 12/18/16 12/18/16 12/19/16 15:00 23:00 07:00 Intake Total 1500 ml Output Total 73 ml Balance 1427 ml Exam Constitutional: alert, oriented, well developed Psych: nl mood/affect, no complaints Head: atraumatic, normocephalic Eyes: EOMI, PERRL, nl conjunctiva, nl lids, nl sclera ENMT: nl external ears & nose, nl lips & teeth, nl nasal mucosa & septum Neck: non-tender, supple Respiratory: clear to auscultation, normal air movement Cardiovascular: nl pulses, regular rate and rhythm Gastrointestinal: nl liver, spleen, non-tender, soft Musculoskeletal: nl extremities to inspection, nl gait and stance Extremities: normal pulses 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: LAB SCIENTIST II-XII intact, nl mental status, nl speech, nl strength Skin: nl turgor, No rash or lesions Lymph: nl lymph nodes Results Result Diagram: 12/19/1655 12/19/16 0555 Results 24 hrs Laboratory Tests Test 12/19/16 05:55 White Blood Count 8.5 # Red Blood Count 4.00 L Hemoglobin 11.8 L Hematocrit 33.7 L Mean Corpuscular Volume 84.3 Mean Corpuscular Hemoglobin 29.5 Mean Corpuscular Hemoglobin Concent 35.0 Red Cell Distribution Width 11.7 Platelet Count 263 Mean Platelet Volume 10.1 Neutrophils % 82.2 H Lymphocytes % 12.5 L Monocytes % 4.7 Eosinophils % 0.0 Basophils % 0.2 Nucleated Red Blood Cells % 0.0 Neutrophils # 7.0 Lymphocytes # 1.1 Monocytes # 0.4 Eosinophils # 0.0 Basophils # 0.0 Nucleated Red Blood Cells # 0.0 Sodium Level 141 Potassium Level 4.6 Chloride Level 103 Carbon Dioxide Level 22 Anion Gap 21 H Blood Urea Nitrogen 6 L Creatinine 0.64 Glucose Level 123 # Calcium Level 9.0 Phosphorus Level 4.6 Magnesium Level 1.8 Total Bilirubin 0.2 Direct Bilirubin 0.00 Indirect Bilirubin 0.2 Aspartate Amino Transf (AST/SGOT) 33 Alanine Aminotransferase (ALT/SGPT) 31 Alkaline Phosphatase 51 Total Protein 6.8 Albumin 3.5 Globulin 3.30 H Albumin/Globulin Ratio 1.06 Amylase Level 62 Lipase 153 Medications Medications Current Medications Acetaminophen (Tylenol Supp) 650 mg Q6H PRN [place] PAIN LEVEL 1-3 OR FEVER; Start 12/13/16 at 12:30 Famotidine (Pepcid Iv) 20 mg Q12 IV Last administered on 12/19/16t 09:50; Admin Dose 20 MG; Start 12/13/16 at 21:00 Morphine Sulfate (morphine) 4 mg Q3H PRN IV PAIN; Start 12/13/16 at 20:00 Al Hydrox/Mg Hydrox/Simethicone (Mag-Al Plus) 20 ml Q4H PRN PO GASTROINTESTINAL UPSET Last administered on 12/16/16 14:30; Admin Dose 20 ML; Start 12/16/16 at 14:30 Ondansetron HCl (Zofran Inj) 4 mg Q6H PRN IV NAUSEA AND/OR VOMITING; Start at 18:30 Acetaminophen (Tylenol Tab) 650 mg Q6H PRN PO PAIN AND OR ELEVATED TEMP; Start 12/18/16 at 18:30 Acetaminophen/ Hydrocodone Bitart ([place] (5/325)) 1 tab Q6H PRN PO PAIN LEVEL 6 -10 Last administered on 12/19/16 15:29; Admin Dose 1 TAB; Start 12/18/16 at 18 :30 Docusate Sodium (Colace) 100 mg BID PO Last administered on 12/19/16 09:50; Admin Dose 100 MG; Start 12/18/16 at 21:00 DEBBIE HANSEN MD Dec 19, 2016 19:29
[2016-12-20] VITALS (9 sets, daily range): BP systolic 111–132; BP diastolic 62–76; PULSE 45–50; RESP 19–20
[2016-12-20 08:22] LABS: BASOPHILS % 0.5 % (0.0-2.0); EOSINOPHILS # 0.2 10^3/ul (0.0-0.5); EOSINOPHILS % 2.4 % (0.0-7.0); HEMATOCRIT 32.9 % (37.0-47.0); HEMOGLOBIN 11.3 g/dl (12.0-16.0); LYMPHOCYTES # 2.7 10^3/ul (0.8-2.9); LYMPHOCYTES % 36.1 % (15.0-51.0); MEAN CORPUSCULAR HEMOGLOBIN 29.7 pg (29.0-33.0); MEAN CORPUSCULAR HGB CONC 34.3 g/dl (32.0-37.0); MEAN CORPUSCULAR VOLUME 86.4 fl (82.0-101.0); MONOCYTE # 0.6 10^3/ul (0.3-0.9); MONOCYTES % 8.1 % (0.0-11.0); NEUTROPHILS % 52.6 % (39.0-77.0); PLATELET COUNT 242 10^3/UL (140-415); RED BLOOD COUNT 3.81 10^6/ul (4.20-5.40); RED CELL DISTRIBUTION WIDTH 12.5 % (11.5-14.5); WHITE BLOOD COUNT 7.5 10^3/ul (4.8-10.8)
--- NOTE | 2016-12-20 08:37 | PN ---
Date/Time of Note Date/Time of Note DATE: 12/20/16 TIME: 08:36 Assessment/Plan VTE Prophylaxis VTE Prophylaxis Intervention: other Lines/Catheters IV Catheter Type (from Nrs): Peripheral IV Urinary Cath still in place: No Assessment/Plan Chief Complaint/Hosp Course 1. CV Preop evaluation 2. pancreatitis 3. gallstones 4. asymptomatic sinus bradycardia: with normal TSH and no symptoms 5. hypo K 6. ABDOMINAL PAIN REC: replace electrolytes prn S/P SURGERY. post op care as per surgery team ok to de tele from cardiac stand point THANK YOU.. ALL YANG MD. Problems: Subjective 24 Hr Interval Summary Free Text/Dictation D/W STAFF and rhythm was reviewed. pt remains in NSR/ SINUS YESIKA NO syncope or presyncope no cp s/p abd surgery. STILL with mild abd pain and nausea. OBJECTIVE: General: no acute distress HEENT: NC/AT. pupils are equal. round. NECK: NO JVD. no stridor. CV: RRR. systolic murmur; no gallop or rubs. PULM: no wheezing or rhonchi. GI: SOFT, NT, mild tenderness, no rebound or guarding Extremity: trace B/L LE edema. no clubbing. neuro: awake and alert, OX3. Psych: calm and pleasant rectal: deferred : normal ECG sinus yesika ECHO reviewed: 1. Normal left ventricular systolic function. Normal left ventricular cavity size. Normal left ventricular wall thickness. Ejection fraction is visually estimated at 65 %. Tissue Doppler/Mitral Doppler indices are within normal limits. 2. Normal appearance and function of the mitral valve with trace physiologic regurgitation. 3. Normal appearance of the aortic valve. No significant aortic stenosis or insufficiency. 4. Normal appearance of the tricuspid valve. Estimated peak PA systolic pressure 28 mmHg. There is trace tricuspid regurgitation. Exam/Review of Systems Vital Signs Vitals Vital Signs Date Time Temp Pulse Resp B/P Pulse Ox O2 Delivery O2 Flow Rate FiO2 12/20/16 08:22 47 12/20/16 07:43 97.9 20 112/68 98 12/18/16 18:37 Room Air 12/17/16 06:20 2.0 Intake and Output 12/19/16 12/19/16 12/20/16 15:00 23:00 07:00 Intake Total 500 ml 500 ml Balance 500 ml 500 ml Results Result Diagram: 12/20/16 0727 12/19/16 0555 Results 24 hrs Laboratory Tests Test 12/20/16 07:27 White Blood Count 7.5 Red Blood Count 3.81 L Hemoglobin 11.3 L Hematocrit 32.9 L Mean Corpuscular Volume 86.4 Mean Corpuscular Hemoglobin 29.7 Mean Corpuscular Hemoglobin Concent 34.3 Red Cell Distribution Width 12.5 Platelet Count 242 Mean Platelet Volume 10.0 Neutrophils % 52.6 Lymphocytes % 36.1 Monocytes % 8.1 Eosinophils % 2.4 Basophils % 0.5 Nucleated Red Blood Cells % 0.0 Neutrophils # 4.0 Lymphocytes # 2.7 Monocytes # 0.6 Eosinophils # 0.2 Basophils # 0.0 Nucleated Red Blood Cells # 0.0 Medications Medications Current Medications Acetaminophen (Tylenol Supp) 650 mg Q6H PRN [place] PAIN LEVEL 1-3 OR FEVER; Start 12/13/16 at 12:30 Famotidine (Pepcid Iv) 20 mg Q12 IV Last administered on 12/19/16 09:50; Admin Dose 20 MG; Start 12/13/16 at 21:00 Morphine Sulfate (morphine) 4 mg Q3H PRN IV PAIN; Start 12/13/16 at 20:00 Al Hydrox/Mg Hydrox/Simethicone (Mag-Al Plus) 20 ml Q4H PRN PO GASTROINTESTINAL UPSET Last administered on 12/16/16 14:30; Admin Dose 20 ML; Start 12/16/16 at 14:30 Ondansetron HCl (Zofran Inj) 4 mg Q6H PRN IV NAUSEA AND/OR VOMITING; Start at 18:30 Acetaminophen (Tylenol Tab) 650 mg Q6H PRN PO PAIN AND OR ELEVATED TEMP; Start 12/18/16 at 18:30 Acetaminophen/ Hydrocodone Bitart ([place] (5/325)) 1 tab Q6H PRN PO PAIN LEVEL 6 -10 Last administered on 12/19/16 15:29; Admin Dose 1 TAB; Start 12/18/16 at 18 :30 Docusate Sodium (Colace) 100 mg BID PO Last administered on 12/19/16 20:36; Admin Dose 100 MG; Start 12/18/16 at 21:00 ALL YANG MD Dec 20, 2016 08:37
[2016-12-20 08:53] LABS: MAGNESIUM 1.8 mg/dl (1.7-2.5); PHOSPHORUS 3.9 mg/dl (2.5-4.9)
[2016-12-20 08:54] LABS: ALBUMIN 3.6 g/dl (3.3-4.9); ALBUMIN/GLOBULIN RATIO 1.24; BILIRUBIN,INDIRECT 0.3 mg/dl (0-1.1); BILIRUBIN,TOTAL 0.3 mg/dl (0.2-1.3); CALCIUM 8.9 mg/dl (8.4-10.2); CREATININE 0.83 mg/dl (0.44-1.00); POTASSIUM 3.6 mmol/L (3.5-5.1); TOTAL PROTEIN 6.5 g/dl (6.1-8.1)
--- NOTE | 2016-12-20 08:59 | RADRPT ---
Vent Rate: 57 bpm RR Interval: 0 msec [place] Interval: 146 msec QRS Duration: 90 msec QT Interval: 476 msec QTC Interval: 463 msec P-R-T [place]: 57 - 80 - 81 degrees Sinus bradycardia Otherwise normal ECG Electronically Signed By: Aditya Victor [id number]
[2016-12-20] MEDS: FAMOTIDINE 20 MG INJ IV SCH (09:00)
[2016-12-20] MEDS: DOCUSATE SODIUM 100 MG CAP PO SCH (09:05)
--- NOTE | 2016-12-20 12:47 | PN ---
Date/Time of Note Date/Time of Note DATE: 12/20/16 TIME: 12:46 Assessment/Plan Lines/Catheters IV Catheter Type (from Nrs): [place] in Place (from Nrs): No Assessment/Plan Assessment/Plan 36-year-old female status post laparoscopic cholecystectomy and drain placement postop day #2 * Drain removed. * Surgically stable for discharge home when medically cleared * Follow-up in office in 1-2 weeks The above was discussed with the patient in detail. I ensured that all of her questions were answered. Further recommendations will be made based on patient' s clinical course. Subjective 24 Hr Interval Summary Feeling better. Tolerating diet. Afebrile. Drain output scant and serous. Exam/Review of Systems Vital Signs Vitals Vital Signs Date Time Temp Pulse Resp B/P Pulse Ox O2 Delivery O2 Flow Rate FiO2 12/20/16 12:26 45 12/20/16 11:51 98.1 20 132/74 94 12/18/16 18:37 Room Air 12/17/16 06:20 2.0 Intake and Output 12/19/16 12/19/16 12/20/16 15:00 23:00 07:00 Intake Total 500 ml 500 ml Balance 500 ml 500 ml Exam Free Text/Dictation GENERAL: Awake, alert, oriented x 3. No acute distress. SKIN: No jaundice. HEENT: PERRLA, EOMI, No Scleral Icterus CARDIOVASCULAR: S1S2, bradycardic RESPIRATORY: Clear to auscultation bilaterally. ABDOMEN: Soft, bowel sounds present, nondistended, appropriate incisional tenderness to palpation INCISIONS: Clean, dry, intact EXTREMITIES: Free range of motion x 4. No cyanosis, edema, or clubbing. Results Result Diagram: 12/20/16 0727 12/20/16 0727 JAY LEON MD Dec 20, 2016 12:47
--- NOTE | 2016-12-20 13:47 | PDOCDIS ---
Discharge Instructions DIAGNOSIS Discharge Diagnosis Gallstone pancreatitis with choledocholithiasis and chronic cholecystitis. Status post laparoscopic cholecystectomy. CONDITION Patient Condition: Stable HOME CARE INSTRUCTIONS: Diet Instructions: Low Fat /CholesterolSpecial Diet: LOW CHOL LOW FAT FOLLOW UP/APPOINTMENTS Follow-up Plan Wm Gonzalez MD Specialty General Surgery Office Address [id number] [address] Office OTHER ORDERS: Other Orders: 1. Low cholesterol diet as tolerated. 2. Keep incisions clean and dry. May shower. Avoid tub baths and swimming for 2 weeks. Use mild soap and pat dry the incisions. 3. Take medications as needed for pain. 4. Call the surgeon or go to the nearest ER if you have severe abdominal pain despite pain medications. 5. Call the surgeon or go to the nearest ER if you notice any bleeding or secretions coming out of the incision sites. Also call the surgeon if you notice any blood in stool, if you have persistent fevers, or any other unusual signs or symptoms. 6. Follow-up with the surgeon Dr. Gonzalez in 7 days for incision check. 7. Avoid heavy lifting [more than 25 pounds] for 8 weeks. JOSE E MAIER NP Dec 20, 2016 13:47
[2016-12-20] MEDS ORDERED: HYDR-3498 PO (13:48)
[2016-12-20] MEDS ORDERED: DOCU-144 PO (13:48)
--- NOTE | 2016-12-20 15:13 | DS ---
Date/Time of Note Date/Time of Note DATE: 12/20/16 TIME: 15:11 Discharge Summary Admission/Discharge Info Admit Date/Time Dec 13, 2016 at 08:56 Discharge Date/Time Discharge Diagnosis 1. Gallstone pancreatitis with choledocholithiasis and chronic cholecystitis. Status post laparoscopic cholecystectomy. 2. Sinus bradycardia. Patient Condition: Stable Consults 1. Wm Gonzalez MD, General Surgery. 2. Raghu Lott MD, Gastroenterology. 3. Aditya Victor MD, Cardiology. Procedures Operation Performed on 12/18/2016 1. Laparoscopic cholecystectomy 2. Placement of drain 2D Echocardiogram Conclusions 1. Normal left ventricular systolic function. Normal left ventricular cavity size. Normal left ventricular wall thickness. Ejection fraction is visually estimated at 65 %. Tissue Doppler/Mitral Doppler indices are within normal limits. 2. Normal appearance and function of the mitral valve with trace physiologic regurgitation. 3. Normal appearance of the aortic valve. No significant aortic stenosis or insufficiency. 4. Normal appearance of the tricuspid valve. Estimated peak PA systolic pressure 28 mmHg. There is trace tricuspid regurgitation. Hx of Present Illness This is a 36-year-old female with a past medical history of gallstones, recent childbirth 4 months ago and is breast-feeding currently, who presented to the emergency room with complaints of worsening epigastric abdominal pain associated with nausea without vomiting. Apparently, patient had undergone ERCP , sphincterotomy and pancreatic stent placement by Dr. Lott the previous day. Patient also reported that she was supposed to go for laparoscopic cholecystectomy with Dr. Gonzalez in the next few weeks. Patient denied any fever , chills, diarrhea, chest pain, shortness of breath, upper or lower GI bleed episode or other constitutional symptoms. Initial workup in the emergency room showed elevated lipase 19,385. Patient was given morphine, GI cocktail, Zofran and IV fluids in the emergency room and a clinical decision was made to admit for further evaluation. Hospital Course A gastroenterology consult and general surgery consult was called. The patient was kept n.p.o. The patient was provided with adequate IV fluids. The patient' s pancreatic enzymes were trending down. Meanwhile, the patient also had significant bradycardia. Hence patient was transferred to telemetry floor for close monitoring. Nevertheless, the patient remained asymptomatic. Cardiology consult was obtained for surgical clearance for a cholecystectomy. The patient was evaluated by cardiology and the patient was cleared for a cholecystectomy. The patient underwent a laparoscopic cholecystectomy with placement of a drain on 12/18/2016. Postoperatively, the patient was started on a clear liquid diet and the patient's diet was advanced as tolerated to a regular consistency diet without any significant gastrointestinal problems. The patient's surgical drain was removed by the surgeon on 12/20/2016. The patient was cleared by general surgery to be discharged home. The patient's pancreatitis was confirmed to be secondary to her gallstones. She is status post ERCP with balloon sweeping and stent placement on 12/12/2016. The patient had a stable hospital course. The patient is stable to be discharged home. The patient's abdominal pain is well controlled. Discharge Instructions 1. Low cholesterol diet as tolerated. 2. Keep incisions clean and dry. May shower. Avoid tub baths and swimming for 2 weeks. Use mild soap and pat dry the incisions. 3. Take medications as needed for pain. 4. Call the surgeon or go to the nearest ER if you have severe abdominal pain despite pain medications. 5. Call the surgeon or go to the nearest ER if you notice any bleeding or secretions coming out of the incision sites. Also call the surgeon if you notice any blood in stool, if you have persistent fevers, or any other unusual signs or symptoms. 6. Follow-up with the surgeon Dr. Gonzalez in 7 days for incision check. 7. Avoid heavy lifting [more than 25 pounds] for 8 weeks. The patient verbalized understanding of her discharge instructions. At this time I would like to thank all the consultants for seeing the patient, doing the necessary procedures, and providing clinical recommendations. Case discussed with Dr. Mahmood. Home Meds Active Scripts Hydrocodone Bit-Acetaminophen (Hydrocodone Bit-APAP) 5-325MG Tablet, 1 TAB PO Q6H Y for PAIN LEVEL 6-10, #10 TAB Prov:JOSE E MAIER NP 12/20/16 Discontinued Scripts Ondansetron Hcl* (Zofran*) 4 Mg Tablet, 4 MG PO Q8H Y for NAUSEA AND/OR VOMITING , #15 TAB Prov:OSCAR HESTER MD 12/13/16 Oxycodone HCl/Acetaminophen (Percocet 5-325 mg Tablet) 1 Each Tablet, 1 EACH PO TID for PAIN AND/OR INFLAMMATION, #12 TAB Prov:OSCAR HESTER MD 12/13/16 Follow-up Plan Follow-up with Dr. Gonzalez in 1 week. Follow-up with your primary care physician as scheduled. Primary Care Provider Bisi Lopez Time spent on discharge: > 30 minutes Pending Labs Laboratory Tests Test 12/20/16 07:27 White Blood Count 7.510^3/ul (4.8-10.8) Red Blood Count 3.8110^6/ul (4.20-5.40) Hemoglobin 11.3g/dl (12.0-16.0) Hematocrit 32.9% (37.0-47.0) Mean Corpuscular Volume 86.4fl (82.0-101.0) Mean Corpuscular Hemoglobin 29.7pg (29.0-33.0) Mean Corpuscular Hemoglobin Concent 34.3g/dl (32.0-37.0) Red Cell Distribution Width 12.5% (11.5-14.5) Platelet Count 78316^3/UL (140-415) Mean Platelet Volume 10.0fl (7.4-10.4) Neutrophils % 52.6% (39.0-77.0) Lymphocytes % 36.1% (15.0-51.0) Monocytes % 8.1% (0.0-11.0) Eosinophils % 2.4% (0.0-7.0) Basophils % 0.5% (0.0-2.0) Nucleated Red Blood Cells % 0.0/100WBC (0.0-0.0) Neutrophils # 4.010^3/ul (1.6-7.5) Lymphocytes # 2.710^3/ul (0.8-2.9) Monocytes # 0.610^3/ul (0.3-0.9) Eosinophils # 0.210^3/ul (0.0-0.5) Basophils # 0.010^3/ul (0.0-0.1) Nucleated Red Blood Cells # 0.010^3/ul (0.0-0.0) Sodium Level 144mmol/L (135-144) Potassium Level 3.6mmol/L (3.5-5.1) Chloride Level 104mmol/L (97-110) Carbon Dioxide Level 25mmol/L (21-31) Anion Gap 19 (8-16) Blood Urea Nitrogen 12mg/dl (7-20) Creatinine 0.83mg/dl (0.44-1.00) Glucose Level 73mg/dl (70-220) Calcium Level 8.9mg/dl (8.4-10.2) Phosphorus Level 3.9mg/dl (2.5-4.9) Magnesium Level 1.8mg/dl (1.7-2.5) Total Bilirubin 0.3mg/dl (0.2-1.3) Direct Bilirubin 0.00mg/dl (0.00-0.20) Indirect Bilirubin 0.3mg/dl (0-1.1) Aspartate Amino Transf (AST/SGOT) 29IU/L (15-46) Alanine Aminotransferase (ALT/SGPT) 37IU/L (13-69) Alkaline Phosphatase 48IU/L (42-121) Total Protein 6.5g/dl (6.1-8.1) Albumin 3.6g/dl (3.3-4.9) Globulin 2.90g/dl (1.3-3.2) Albumin/Globulin Ratio 1.24 Amylase Level 135U/L (11-123) Lipase 501U/L (23-300) JOSE E MAIER NP Dec 20, 2016 15:13 JOSE E MAIER NP Dec 20, 2016 15:13
== END 2016-12-20 16:19 | disposition home or self-care (01) | DRG 417 ==
LOC: E/R 05:12 → MS2 08:56 → TEL 12-17 00:27
PROVIDERS: ADMIT Hospitalist; ATTEND Hospitalist
PROC: 0FT44ZZ Resection of Gallbladder, Percutaneous Endoscopic Approach (ICD-10-PCS; principal; 2016-12-18 18:00)
DX: K80.44 Calculus of bile duct with chronic cholecystitis without obstruction (principal); K85.10 Biliary acute pancreatitis without necrosis or infection; E87.0 Hyperosmolality and hypernatremia; R00.1 Bradycardia, unspecified; G89.18 Other acute postprocedural pain; R12 Heartburn; E87.6 Hypokalemia; Z98.890 Other specified postprocedural states
CPT/HCPCS: 36415; 80048; 80053; 80061; 80076; 81003; 82150; 83036; 83690; 83735; 84100; 84436; 84443; 84479; 84703; 85025; 85610; 88304; 93005; 93306; 96374; 96375; J0131; J0690; J1100; J1170; J1885; J2250; J2270; J2405; J2710; J2765; J3010; J3480; J7030; J7040; J7042; J7070; J7999

== ENCOUNTER 2017-04-26 08:31 | Day surgery (SDC) | payer OTHER ==
[~2017-04-26] VITALS: Ht 160 cm; Wt 67.6 kg
[2017-04-26] VITALS (14 sets, daily range): BP systolic 109–132; BP diastolic 62–70; PULSE 56–72; RESP 16–20; Ht 160 cm; Wt 67.6 kg
[~2017-04-26 08:31] MED LIST: CIPROFLOXACIN 400 MG in D5W 200 ML IVPB SCH; HYDR-3498 PO
[2017-04-26] MEDS ORDERED: IOHEXOL 300MG/ML 30 ML BTL ONE (10:45)
[2017-04-26] MEDS ORDERED: PROPOFOL 20 ML ONE (11:00)
[2017-04-26] MEDS ORDERED: LIDOCAINE 2% (SDV) 5 ML INJ ONE (11:00)
[2017-04-26] MEDS ORDERED: DEXAMETHASONE 4 MG/ML 1 ML INJ ONE (11:15)
[2017-04-26] MEDS ORDERED: KETOROLAC 30 MG INJ ONE (11:15)
[2017-04-26] MEDS ORDERED: ONDANSETRON 4 MG INJ ONE (11:15)
--- NOTE | 2017-04-26 11:38 | OPPN ---
Date/Time of Note Date/Time of Note DATE: 04/26/17 TIME: 11:36 Proc Note GI Procedure Date 04/26/17 Indication: follow-up Pre-procedure Diagnosis Bile duct stent Post-procedure Diagnosis Stent had migrated inside on the last 102% was barely visible. With the help of rat-tooth forceps the entire stent was removed Stone also was removed Cholangiogram was clean after multiple balloon sweeping Procedure Performed: ERCP Surgeon see signature line Pearl Maker none Anesthesia Type: general Tourniquet Time none EBL none Transfusion required none Biopsy 1: None Grafts/Implants none Tubes/Drains none Complication(s) none Procedure Description See dictated report DEBBIE HANSEN MD Apr 26, 2017 11:38
--- NOTE | 2017-04-26 13:21 | GILP ---
DATE OF PROCEDURE: PROCEDURE: ERCP and removal of stent and also removal of the stone. INDICATION: A 36-year-old female undergoing this procedure for removal of the stent and also make s ure no stone is left behind on cholangiogram. INFORMED CONSENT: The risk of the procedure, related and unrelated complications, anesthetic risks, alternatives discussed. Informed consent was obtained. DESCRIPTION OF PROCEDURE: The patient was brought to the OR room #9, intubated by the anesthesiolog ist, placed in a prone position. After administration of Cipro, scope was passed with much ease int o esophagus and advanced further down into stomach and duodenum. Ampulla was identified. The stent was barely visible, only 1-2% of it was seen, so at this point decided to use rescue forceps. With the help of rescue forceps, removed the stent completely. Cholangiogram was done, balloon sweeping was done with 12 mm balloon multiple times, one stone came out. After sweeping the bile duct multi ple times, when no stone was identified, scope and the guidewire was removed. The patient tolerated the procedure very well. Total fluoro time was just 1 second. IMPRESSION: 1. Removal of the stent which has migrated in the biliary system almost 95%. 2. Removal of a stone. 3. Fluoroscopy time was 1 second. PLAN: Resume a regular diet and we will follow her up in the office. Dictated By: DEBBIE LOFTON/MICHAEL Conf#: [id number] DID#: [id number] CC: EUGENE MELCHOR;*End*
--- NOTE | 2017-04-26 14:46 | RADRPT ---
PROCEDURE: X-ray fluoroscopy guidance CLINICAL INDICATION: ERCP TECHNIQUE: Fluoroscopic guidance was utilized for an intraoperative procedure. Fluoro time: 2.6 seconds Number of images/sequences: 3 COMPARISON: None available FINDINGS: Endoscope is identified. Wires seen within the biliary tree. Significant biliary dilatation is not i dentified. Anatomy is normal. Balloon sweep was performed. The bowel gas pattern is unremarkable. Th e osseous structures are unremarkable. Bony mineralization is normal. Right lung base is unremarkabl e. IMPRESSION: 1. X-ray fluoroscopic guidance utilized for intraoperative procedure. 2. ERCP performed with fluoroscopic guidance. RPTAT: HMJB .Franklin Yu MD, MD Date Time Electronically viewed and signed by .Franklin Yu MD, on 04/26/2017 14:45 .B/
== END 2017-04-26 13:10 | disposition home or self-care (01) ==
LOC: SDS 08:31 → GIL 08:31
PROVIDERS: ATTEND Internal Medicine Gastroenterology
DX: K80.50 Calculus of bile duct without cholangitis or cholecystitis without obstruction (principal)
CPT/HCPCS: 43264; 43275; 74330; 84703; J0744; J1100; J1885; J2405; Q9967; Z7512; Z7610